=== PATIENT | female | born 1945 | race Caucasian/White ===

== ENCOUNTER 2016-04-25 12:13 | Inpatient (IN) | payer MEDICARE, MEDICAID ==
[~2016-04-25] VITALS: Ht 157.5 cm; Wt 147.7 kg
[2016-04-25] MEDS ORDERED: ACETAMINOPHEN 500 MG TAB PO STA (12:15)
--- NOTE | 2016-04-25 12:36 | RADRPT ---
PROCEDURE: XR Chest. CLINICAL INDICATION: Sepsis. TECHNIQUE: Single frontal view of the chest was obtained COMPARISON: Chest x-ray 04/09/2014 12:41 p.m. FINDINGS: Heart is enlarged. The pulmonary vasculature is increased. The soft tissues are generous. There a re osteophytes in the thoracic spine. There are vascular calcifications in the aortic arch. Costop hrenic angle on the right is clear. The left costophrenic angle is poorly visualized due to underpe netration of the radiograph. IMPRESSION: 1. Cardiomegaly with atherosclerotic vascular disease involving the aortic arch. 2. Obesity with underpenetration of the radiograph. 3. Spondylosis of the thoracic spine. 4. The pulmonary vasculature is equilibrated. Mild pulmonary venous obstruction is not excluded. RPTAT:AAJJ Physician Valentina Date Time Electronically viewed and signed by Catrachito Marshall Physician on 04/25/2016 12:36 LUCY/
[2016-04-25] MEDS ORDERED: ESOM40CA PO (12:49)
[2016-04-25] MEDS ORDERED: FURO40TA4 PO (12:50)
[2016-04-25] MEDS ORDERED: FLUO40CA10 PO (12:50)
[2016-04-25] MEDS ORDERED: POTA20TA96 PO (12:51)
[2016-04-25] MEDS ORDERED: HYDR-902 PO (12:52)
[2016-04-25] MEDS ORDERED: GABA300C16 PO (12:52)
[2016-04-25] MEDS ORDERED: BACL10TA PO (12:53)
[2016-04-25] MEDS ORDERED: WARF1TAB47 PO (12:53)
[2016-04-25] MEDS ORDERED: MORP15TA92 PO (12:54)
[2016-04-25] MEDS ORDERED: SOD CHLORIDE 0.9% 1,000 ML IV STA ×2 (13:10→14:14)
[2016-04-25 13:24] LABS: BASOPHILS % 0.1 % (0.0-2.0); EOSINOPHILS % 0.1 % (0.0-7.0); HEMATOCRIT 30.9 % (37.0-47.0); HEMOGLOBIN 10.3 g/dl (12.0-16.0); LYMPHOCYTES # 1.2 10^3/ul (0.8-2.9); LYMPHOCYTES % 9.4 % (15.0-51.0); MEAN CORPUSCULAR HEMOGLOBIN 25.7 pg (29.0-33.0); MEAN CORPUSCULAR HGB CONC 33.4 g/dl (32.0-37.0); MEAN PLATELET VOLUME 6.8 fl (7.4-10.4); MONOCYTE # 0.5 10^3/ul (0.3-0.9); MONOCYTES % 4.3 % (0.0-11.0); NEUTROPHIL # 10.7 10^3/ul (1.6-7.5); NEUTROPHILS % 86.1 % (39.0-77.0); PLATELET COUNT 249 10^3/UL (140-440); RED BLOOD COUNT 4.01 10^6/ul (4.20-5.40); RED CELL DISTRIBUTION WIDTH 14.2 % (11.5-14.5); UNCORRECTED WBC 12.5 10^3/ul (4.8-10.8); WHITE BLOOD COUNT 12.5 10^3/ul (4.8-10.8)
[2016-04-25 13:27] LABS: CONDITION 1; LH ANALYZER COMMENTS 1
[2016-04-25 13:30] LABS: ALBUMIN 3.7 g/dl (3.3-4.9)
[2016-04-25 13:31] LABS: CHLORIDE 99 mmol/L (97-110); INR 1.16; POTASSIUM 4.8 mmol/L (3.5-5.1); PROTIME 14.8 Sec (12.2-14.2); PT RATIO 1.2; SODIUM 140 mmol/L (135-144)
[2016-04-25 13:32] LABS: PARTIAL THROMBOPLASTIN TIME 28.5 Sec (25.0-35.0)
[2016-04-25 13:33] LABS: ALBUMIN/GLOBULIN RATIO 0.84; ALKALINE PHOSPHATASE 80 IU/L (42-121); ANION GAP 21 (8-16); ASPARTATE AMINO TRANSFERASE 27 IU/L (15-46); BILIRUBIN,INDIRECT 0.7 mg/dl (0-1.1); BILIRUBIN,TOTAL 0.7 mg/dl (0.2-1.3); CARBON DIOXIDE 25 mmol/L (21-31); CREATININE 0.78 mg/dl (0.44-1.00); TOTAL PROTEIN 8.1 g/dl (6.1-8.1)
--- NOTE | 2016-04-25 13:33 | RADRPT ---
PROCEDURE: CT Brain without contrast. CLINICAL INDICATION: Altered mental status TECHNIQUE: A CT of the brain was performed on a multidetector CT scanner utilizing axial sections from the skull base through the vertex without contrast. Images were reviewed on a high-resolution [employer] workstation. Exam CTDI = 44.81 mGy and the DLP = 720.23 mGy-cm. COMPARISON: CT scan brain dated 03/20/2014 FINDINGS: Moderate diffuse cerebral and cerebellar atrophy is present. There is proportionate dilatation of t he ventricular system and sulci in a symmetric fashion. There is prominence of the extraaxial spaces secondary to atrophy. There is no evidence of intracranial hemorrhage, mass effect or midline shift . No abnormal intra-axial or extra-axial fluid collections are seen. The density of the brain is n ormal and the norris/white matter differentiation is well preserved. Mild patchy diffuse deep white m atter microangiopathic ischemic change is seen. Appearances are stable when compared to the prior s tudy. The osseous structures and visualized paranasal sinuses are unremarkable. Vascular calcificat ions are identified. IMPRESSION: 1. Moderate diffuse atrophy. 2. Mild microangiopathic ischemic change. 3. Vascular calcifications. 4. Stable appearances over time. RPTAT: HMJB .Armond Kwok MD, Date Time Electronically viewed and signed by .Armond Kwok MD, on 04/25/2016 13:32 .B/
[2016-04-25 13:34] LABS: ALANINE AMINOTRANSFERASE 25 IU/L (13-69); BLOOD UREA NITROGEN 20 mg/dl (7-20); CALCIUM 9.1 mg/dl (8.4-10.2); GLUCOSE 144 mg/dl (70-220)
[2016-04-25 13:46] LABS: TROPONIN-I < 0.012 ng/ml (0.00-0.12)
[2016-04-25] MEDS ORDERED: CEFTRIAXONE 1 GM/50 ML (PMX) 50 ML IVPB ONE (14:00)
[2016-04-25 14:26] LABS: ADD UMIC YES; URINE BILIRUBIN (Dip) NEGATIVE (NEGATIVE); URINE BLOOD (Dip) 2+ (NEGATIVE); URINE COLOR LT. YELLOW (YELLOW); URINE GLUCOSE (Dip) NEGATIVE (NEGATIVE); URINE KETONES (Dip) NEGATIVE (NEGATIVE); URINE LEUKOCYTE ESTERASE (Dip) 2+ (NEGATIVE); URINE NITRITE (Dip) POSITIVE (NEGATIVE); URINE TOTAL PROTEIN (Dip) 2+ (NEGATIVE); URINE UROBILINOGEN (Dip) 0.2 E.U./dL (0.1-1.0)
[2016-04-25] MEDS ORDERED: SOD CHLORIDE 0.9% 1,000 ML IV SCH (14:36)
[2016-04-25 14:39] LABS: BACTERIA,URINE MODERATE
--- NOTE | 2016-04-25 14:41 | ERA ---
ER Documentation Chief Complaint Date/Time DATE: 04/25/16 TIME: 14:37 Chief Complaint ALOC UNKNOWN HOW LONG HPI This is a 70-year-old female presents to the emergency room for evaluation of altered mental status and weakness for 1 days duration. This patient states that she does not know why she is in the emergency room, she has no complaints at this time, not complaining of chest pain or shortness of breath. No headaches or blurred vision. According to family members this patient was more altered than normal ROS All systems reviewed and are negative except as per history of present illness. Medications Home Meds Reported Medications Morphine Sulfate* (Ms Contin*) 15 Mg Tablet.sa, 30 MG PO Q8 Y for PAIN, TAB.SA 04/25/16 Warfarin Sodium* (Coumadin*) 1 Mg Tablet, 1 MG PO DAILY, TAB 04/25/16 Baclofen* (Baclofen*) 10 Mg Tablet, 10 MG PO DAILY, TAB 04/25/16 Gabapentin* (Gabapentin*) 300 Mg Capsule, 300 MG PO QID, #60 CAP 04/25/16 Hydrocodone/Acetaminophen ([place] 10-325 Tablet) 1 Each Tablet, 1 EACH PO Q6 Y for PAIN, TAB 04/25/16 Potassium Chloride* (Potassium Chloride*) 20 Meq Tablet.er, 20 MEQ PO DAILY, TAB.SA 04/25/16 Fluoxetine Hcl* (Prozac*) 40 Mg Capsule, 40 MG PO DAILY, CAP 04/25/16 Furosemide* (Furosemide*) 40 Mg Tablet, 40 MG PO DAILY, TAB 04/25/16 Esomeprazole Mag Trihydrate (Nexium) 40 Mg Capsule.dr, 40 MG PO DAILY, #30 CAP 04/25/16 Allergies Allergies: Coded Allergies: No Known Allergy (Unverified , 04/25/16) PMhx/Soc Anesthesia Reaction: No Hx Neurological Disorder: Yes (Recent hx [place]) Hx Respiratory Disorders: No Hx Cardiac Disorders: No Hx Psychiatric Problems: No Hx Miscellaneous Medical Probl: No Hx Alcohol Use: Yes (occasional glass of wine with dinner) Hx Substance Use: No Hx Tobacco Use: Yes (Hx of 2 pack a day for 36 years) Smoking Status: Current every day smoker Physical Exam Vitals Vital Signs Date Time Temp Pulse Resp B/P Pulse Ox O2 Delivery O2 Flow Rate FiO2 04/25/16 13:00 Nasal Cannula 2 04/25/16 12:17 103.1 121 20 184/88 89 Physical Exam INITIAL VITAL SIGNS: Reviewed by me GENERAL: The patient is well developed and appropriate for usual state of health in no apparent distress, warm to touch HEENT: Dry mucous members, pupils equal, round, and reactive to light. EOMI. There is no scleral icterus. NECK: C-spine is soft and supple, there is no meningismus. There is no cervical lymphadenopathy. LUNGS: Clear to auscultation bilaterally. There are no rales, wheezes or rhonchi. HEART: Tachycardic, no murmurs, clicks, rubs or gallops. ABDOMEN: Obese limiting exam, soft, non-tender, non-distended. There are bowel sounds in all four quadrants. No rebound or guarding. EXTREMITIES: There is no peripheral cyanosis or edema. No focal swelling or erythema. NEUROLOGICAL: The patient moves all four extremities with 5/5 strength. Cranial nerves II - XII are intact. Normal gait. Alert and oriented SKIN: There is no apparent rash or petechiae. HEME/LYMPHATIC: There is no evidence of excessive bruising or lymphedema. PSYCHIATRIC: The patient does not appear anxious or depressed. Result Diagram: 04/25/16 1235 04/25/16 1235 Results 24 hrs Laboratory Tests Test 04/25/16 12:30 04/25/16 12:35 04/25/16 13:57 Lactic Acid Level 2.4mmol/L Activated Partial Thromboplast Time 28.5Sec Alanine Aminotransferase (ALT/SGPT) 25IU/L Albumin 3.7g/dl Albumin/Globulin Ratio 0.84 Alkaline Phosphatase 80IU/L Anion Gap 21 Aspartate Amino Transf (AST/SGOT) 27IU/L Basophils # 0.010^3/ul Basophils % 0.1% Blood Morphology Comment Blood Urea Nitrogen 20mg/dl Calcium Level 9.1mg/dl Carbon Dioxide Level 25mmol/L Chloride Level 99mmol/L Creatinine 0.78mg/dl Direct Bilirubin 0.00mg/dl Eosinophils # 0.010^3/ul Eosinophils % 0.1% Globulin 4.40g/dl Glucose Level 144mg/dl Hematocrit 30.9% Hemoglobin 10.3g/dl INR International Normalized Ratio 1.16 Indirect Bilirubin 0.7mg/dl Lymphocytes # 1.210^3/ul Lymphocytes % 9.4% Mean Corpuscular Hemoglobin 25.7pg Mean Corpuscular Hemoglobin Concent 33.4g/dl Mean Corpuscular Volume 77.0fl Mean Platelet Volume 6.8fl Monocytes # 0.510^3/ul Monocytes % 4.3% Neutrophils # 10.710^3/ul Neutrophils % 86.1% Nucleated Red Blood Cells # 0.010^3/ul Nucleated Red Blood Cells % 0.0/100WBC Platelet Count 92507^3/UL Potassium Level 4.8mmol/L Prothrombin Time 14.8Sec Prothrombin Time Ratio 1.2 Red Blood Count 4.0110^6/ul Red Cell Distribution Width 14.2% Sodium Level 140mmol/L Total Bilirubin 0.7mg/dl Total Protein 8.1g/dl Troponin I < 0.012ng/ml White Blood Count 12.510^3/ul Urine Bilirubin NEGATIVE Urine Clarity TURBID Urine Color LT. YELLOW Urine Glucose NEGATIVE% Urine Hemoglobin 2+ Urine Ketones NEGATIVE Urine Leukocyte Esterase 2+ Urine Microscopic RBC Pending Urine Microscopic WBC Pending Urine Nitrite POSITIVE Urine Specific [place] 1.025 Urine Total Protein 2+ Urine Urobilinogen 0.2 E.U./dL Urine pH 6.0 Current Medications Medications (Trade) Dose Ordered Sig/Macy Route PRN Reason Start Time Stop Time Status Last Admin Dose Admin Acetaminophen 500 mg 500 mg ONCE STAT PO 04/25/16 12:15 04/25/16 12:17 DC 04/25/16 13:07 Sodium Chloride 1,000 ml @ 1,000 mls/hr Q1H STAT IV 04/25/16 13:10 04/25/16 14:09 DC Ceftriaxone Sodium 50 ml @ 100 mls/hr ONCE ONCE IVPB 04/25/16 14:00 04/25/16 14:29 DC Sodium Chloride (NS) 1,000 ml @ 1,000 mls/hr Q1H STAT IV 04/25/16 14:14 04/25/16 15:13 Procedures/MDM EKG: Rate/Rhythm: Sinus tachycardia QRS, ST, T-waves: [No changes consistent w/ acute ischemia] Impression: [No evidence of ischemia or arrhythmia] Chest X-ray 1V Interpreted by me: Soft Tissue: No acute abnormalities Bones: No acute abnormalities Mediastinum/Cardiac Silhouette/Lungs: [No acute abnormalities] CT head without: 1. Moderate diffuse atrophy. 2. Mild microangiopathic ischemic change. 3. Vascular calcifications. 4. Stable appearances over time. This is a 70-year-old female presents to the emergency room for evaluation of altered mental status. When I evaluated her she was not altered. She was alert and oriented to person place and time. The patient was febrile tachycardic however. A septic workup was started and the patient was found to have a urinary tract infection with leukocytosis. Given her fever and tachycardia she does meet sepsis criteria. She was not given 30 cc/kg of IV normal saline due to the fact that she is at significant risk for fluid overload given her age and vascular congestion on chest x-ray. The patient was given Rocephin after blood and urine cultures were obtained. Her initial lactic acid was 2.4. Second lactic acid is pending at this time. Her mean arterial pressures greater than 65 with no need for vasopressors at this time. CT of the brain is normal and the patient has no signs of altered mental status. This patient is stable for [facility] And will be admitted to her panel physician, Dr. Fermin Critical Care: Excluding all billable procedures Time: 38 minutes Treatments/Evaluations: Close monitoring and treatment of unstable vital signs, cardiorespiratory, and neurologic status, while maintaining tight balance of fluid, respiratory, and cardiac interventions. Departure Diagnosis: Primary Impression: Sepsis Additional Impressions: Acute cystitis Microcytic anemia Generalized weakness Condition: MICHAEL Bacon DO Apr 25, 2016 14:41
[2016-04-25] MEDS ORDERED: ONDANSETRON 4 MG INJ IV PRN ×2 (15:00→19:00)
[2016-04-25] MEDS ORDERED: ACETAMINOPHEN 325 MG TAB PO PRN ×2 (15:00→19:00)
[2016-04-25 16:30] VITALS: TEMP 99.6
[2016-04-25 18:46] VITALS: BP 133/91; PULSE 110; RESP 18
[2016-04-25 18:47] VITALS: Ht 157.5 cm; Wt 147.7 kg
[2016-04-25] MEDS ORDERED: PIPER-TAZO 3.375 GM IV (PMX) 100 ML IVPB SCH (19:00)
[2016-04-25] MEDS ORDERED: NACL 0.9% 3 ML SYG IV SCH (19:00)
[2016-04-25] MEDS ORDERED: morphine (ER) 15 MG TAB PO PRN (19:00)
[2016-04-25] MEDS ORDERED: ZOLPIDEM 5 MG TAB PO PRN (19:00)
[2016-04-25] MEDS ORDERED: DOCUSATE SODIUM 100 MG CAP PO PRN (19:00)
[2016-04-25] MEDS ORDERED: morphine 2 MG INJ IV PRN (19:00)
[2016-04-25] MEDS: SOD CHLORIDE 0.45% 1,000 ML IV SCH (20:24)
[2016-04-25 21:06] VITALS: BP 171/73; RESP 16
[2016-04-25] MEDS: GABAPENTIN 300 MG CAP PO SCH (22:18)
[2016-04-25] MEDS: morphine 2 MG INJ IV PRN (22:19)
[2016-04-26] MEDS: PIPER-TAZO 3.375 GM IV (PMX) 100 ML IVPB SCH ×3 (01:00→12:19)
[2016-04-26] MEDS: HYDROCODONE/APAP (5/325) TAB PO PRN ×2 (01:03→08:23)
[2016-04-26] MEDS: SOD CHLORIDE 0.45% 1,000 ML IV SCH ×2 (04:43→08:14)
[2016-04-26] MEDS: morphine 2 MG INJ IV PRN ×2 (04:44→12:22)
[2016-04-26] MEDS ORDERED: PANTOPRAZOLE (EC) 40 MG TAB PO SCH (06:00)
--- NOTE | 2016-04-26 06:03 | HP ---
DATE OF ADMISSION: 04/25/2016 CHIEF COMPLAINT: Generalized weakness, fatigue. HISTORY OF PRESENT ILLNESS: The patient is a 70-year-old female with a history of hypothyroidism, m orbid obesity, neuropathy, diabetes, deconditioning. The patient was hospitalized in 2014 for debil ity, GBS with notable impoverishment in self-care and mobility. The patient now presents with gener alized weakness. In the ED, she was noted to have a UA that suggested UTI. Her urine was very clou dy and she has no other complaints at this time. PAST MEDICAL HISTORY: As per HPI. HOME MEDICATIONS: 1. Baclofen. 2. [place]. 3. Nexium. 4. Prozac. 5. Furosemide. 6. Gabapentin. 7. MS Contin. 8. Potassium. 9. Coumadin. ALLERGIES: NO KNOWN DRUG ALLERGIES. FAMILY HISTORY: Noncontributory. SOCIAL HISTORY: Denies any tobacco, alcohol, or drug abuse. REVIEW OF SYSTEMS: A 10-point review of systems negative except that in the HPI. PHYSICAL EXAMINATION: VITAL SIGNS: Temperature is 99.7, pulse 110, respiratory rate 18, BP is 133/91, saturation 97% on 2 liters. GENERAL: In no acute distress, alert and oriented. HEENT: Normocephalic, atraumatic. CHEST: Clear to auscultation. CARDIOVASCULAR: Regular rate and rhythm. ABDOMEN: Obese, nondistended, nontender, soft. EXTREMITIES: No clubbing, cyanosis, or edema. LABORATORIES: White count 12.5, hemoglobin 10.3, platelets are 49. Chemistry within normal limits except for lactic acid slightly elevated at 2.4, subsequent lactic acids are normalized. INR is 1. 16. UA positive nitrites, 2+ leukocyte esterase, greater than 200 WBCs. DIAGNOSTICS: Chest x-ray shows cardiomegaly with atherosclerotic vascular disease involving the aor tic arch, obesity, spondylosis of the thoracic spine and pulmonary vasculature is collaborated. Bra in CT shows moderate diffuse atrophy, mild microangiopathic ischemic changes, vascular calcification s, stable appearance over time. ASSESSMENT AND PLAN: 1. Sepsis secondary to urinary tract infection. The patient does meet sepsis criteria with a fever , T-max of 103.1 on arrival, leukocytosis with a white count of 12.5, elevated lactic acid of 2.4. Source is once again is urinary tract infection. We treated with Zosyn IV as the patient does have a history of fairly resistant coagulase negative staph in the past. Will obtain a urine culture. I f felt to be needed, will get an infectious disease consultation in the a.m. We will also treat wit h IV fluids. 2. Morbid obesity. Lifestyle changes will be advised during this hospitalization. 3. History of debility secondary to obesity. 4. History of GBS. Periods of this was suspected during the last hospitalization in 2014. 5. Gastroesophageal reflux disease. Continue Nexium. 6. Depression. Continue Prozac. 7. Neuropathy. Continue gabapentin. 8. Prophylaxis. Lovenox. Dictated By: DIMITRY CARROLL MD BS/NTS Conf#: [id number] DID#: [id number]
[2016-04-26 06:11] LABS: POTASSIUM 4.2 mmol/L (3.5-5.1)
[2016-04-26 06:12] LABS: INR 1.18; PROTIME 15.1 Sec (12.2-14.2); PT RATIO 1.2
[2016-04-26 06:14] LABS: CREATININE 0.67 mg/dl (0.44-1.00)
[2016-04-26 06:15] LABS: CALCIUM 8.6 mg/dl (8.4-10.2); CHOL/HDL RATIO 4.3 RATIO; PHOSPHORUS 3.1 mg/dl (2.5-4.9)
[2016-04-26 06:45] LABS: BASOPHILS % 0.3 % (0.0-2.0); EOSINOPHILS % 0.1 % (0.0-7.0); HEMATOCRIT 28.7 % (37.0-47.0); HEMOGLOBIN 9.4 g/dl (12.0-16.0); LYMPHOCYTES # 1.4 10^3/ul (0.8-2.9); LYMPHOCYTES % 16.3 % (15.0-51.0); MEAN CORPUSCULAR HEMOGLOBIN 25.4 pg (29.0-33.0); MEAN CORPUSCULAR HGB CONC 32.8 g/dl (32.0-37.0); MEAN CORPUSCULAR VOLUME 77.3 fl (82.0-101.0); MEAN PLATELET VOLUME 7.3 fl (7.4-10.4); MONOCYTE # 0.5 10^3/ul (0.3-0.9); MONOCYTES % 5.2 % (0.0-11.0); NEUTROPHIL # 6.8 10^3/ul (1.6-7.5); NEUTROPHILS % 78.1 % (39.0-77.0); PLATELET COUNT 204 10^3/UL (140-440); RED BLOOD COUNT 3.71 10^6/ul (4.20-5.40); RED CELL DISTRIBUTION WIDTH 14.1 % (11.5-14.5); UNCORRECTED WBC 8.8 10^3/ul (4.8-10.8); WHITE BLOOD COUNT 8.8 10^3/ul (4.8-10.8)
[2016-04-26 07:10] LABS: CONDITION 1; LH ANALYZER COMMENTS 1
[2016-04-26 07:35] VITALS: BP 137/70; RESP 20
[2016-04-26] MEDS: GABAPENTIN 300 MG CAP PO SCH ×2 (08:14→12:20)
[2016-04-26] MEDS ORDERED: FUROSEMIDE 40 MG TAB PO SCH (09:00)
[2016-04-26] MEDS ORDERED: ENOXAPARIN 40 MG/0.4 ML SYG SC SCH (09:00)
[2016-04-26] MEDS ORDERED: WARFARIN 1 MG TAB PO SCH (09:00)
[2016-04-26] MEDS ORDERED: FLUOXETINE 20 MG CAP PO SCH (09:00)
[2016-04-26] MEDS ORDERED: POTASSIUM CHLORIDE (SR) 20 MEQ TAB PO SCH (09:00)
[2016-04-26] MEDS ORDERED: CIPR500T4 PO (09:45)
[2016-04-26] MEDS ORDERED: MACBID PO (09:45)
--- NOTE | 2016-04-26 09:46 | PDOCDIS ---
Discharge Instructions CONDITION Patient Condition: Good HOME CARE INSTRUCTIONS: Special Diet: Low Calorie ACTIVITY: Activity Restrictions: No Restrictions FOLLOW UP/APPOINTMENTS Appointments F/U WITH YOUR PCP IN 1-2 WEEKS DIMITRY CARROLL Apr 26, 2016 09:46
[2016-04-26] MEDS ORDERED: NITROFURANTOIN (SR) 100 MG CAP PO SCH (10:30)
[2016-04-26 14:29] VITALS: BP 145/71; PULSE 108; RESP 18
--- NOTE | 2016-04-26 19:26 | DS ---
DATE OF ADMISSION: 04/25/2016 DATE OF DISCHARGE: 04/26/2016 DISCHARGE DIAGNOSES: 1. Sepsis secondary to urinary tract infection, improved with p.o. antibiotics. 2. Morbid obesity with debility. Continue home PT. 3. Gastroesophageal reflux disease. Continue PPI. 4. Depression. Continue Prozac. 5. Neuropathy. Continue gabapentin. HOSPITAL COURSE: The patient is a 70-year-old female with a history of hyperthyroidism, morbid obes ity, neuropathy, diabetes and deconditioning. The patient was hospitalized for debility. At that time it was thought that she may have GBS. The patient states that the workup showed that she does not have GBS, actually. She does have home care and had been undergoing physical therapy at [facility]. She presented with generalized weakness, found to have sepsis secondary to urinary tract infect ion. The patient was given IV antibiotics and her sepsis did resolve. Patient was adamant about go ing home, so the patient can continue the course of antibiotics at home. On day of discharge, the p atient's vitals, labs, physical exam were stable. She had no acute complaints and questions answere d. CONDITION ON DISCHARGE: Stable. DISPOSITION: To home. MEDICATIONS: The patient was given a prescription for Cipro and Macrobid. Of note, the patient's p reliminary urine culture showed gram-negative rods. The patient is to continue taking at-home medic ations. FOLLOWUP: The patient is to follow up with PCP in 1 to 2 weeks. Greater than 30 minutes were spent coordinating discharge of patient. Dictated By: DIMITRY RIVERA/NTS Conf#: [id number] DID#: [id number]
== END 2016-04-26 14:37 | disposition home or self-care (01) | DRG 872 ==
LOC: E/R 12:13 → MS2 14:37
PROVIDERS: ADMIT Internal Medicine; ATTEND Internal Medicine
DX: A41.9 Sepsis, unspecified organism (principal); N39.0 Urinary tract infection, site not specified; G62.9 Polyneuropathy, unspecified; Z68.43 Body mass index [BMI] 50.0-59.9, adult; K21.9 Gastro-esophageal reflux disease without esophagitis; F32.9 Major depressive disorder, single episode, unspecified; E66.01 Morbid (severe) obesity due to excess calories; Z79.02 Long term (current) use of antithrombotics/antiplatelets
CPT/HCPCS: 36415; 70450; 71010; 80048; 80053; 80061; 81001; 81003; 83036; 83605; 83735; 84100; 84484; 85025; 85610; 85730; 87040; 87086; 87400; 93005; 96374; J0696; J1650; J2270; J2405; J2543; J7030

== ENCOUNTER 2016-07-29 11:02 | Inpatient (IN) | payer MEDICARE, OTHER ==
[~2016-07-29] VITALS: Ht 162.6 cm; Wt 143.0 kg
[~2016-07-29 11:02] MED LIST: BACL10TA PO; CIPR500T4 PO; ESOM40CA PO; FLUO40CA10 PO; FURO40TA4 PO; GABA300C16 PO; HYDR-902 PO; MACBID PO; MORP15TA92 PO; POTA20TA96 PO; WARF1TAB47 PO
[2016-07-29] MEDS ORDERED: CEFEPIME 2GM/50 ML (PMX) 50 ML IVPB STA (11:07)
[2016-07-29] MEDS ORDERED: SODIUM CHLORIDE 0.9% 1L BAG IV* STA (11:13)
[2016-07-29] MEDS ORDERED: VANCOMYCIN 1 GM (PMX) 250 ML IVPB ONE (11:30)
[2016-07-29] MEDS ORDERED: ACETAMINOPHEN 325 MG TAB PO ONE (11:30)
[2016-07-29 11:31] LABS: ADD SCAN DIFF NO
[2016-07-29 11:34] LABS: BASOPHILS % 0.2 % (0.0-2.0); EOSINOPHILS # 0.1 10^3/ul (0.0-0.5); EOSINOPHILS % 0.4 % (0.0-7.0); HEMATOCRIT 25.6 % (37.0-47.0); HEMOGLOBIN 7.6 g/dl (12.0-16.0); LYMPHOCYTES # 1.6 10^3/ul (0.8-2.9); LYMPHOCYTES % 13.4 % (15.0-51.0); MEAN CORPUSCULAR HEMOGLOBIN 22.6 pg (29.0-33.0); MEAN CORPUSCULAR HGB CONC 29.7 g/dl (32.0-37.0); MEAN CORPUSCULAR VOLUME 76.2 fl (82.0-101.0); MEAN PLATELET VOLUME 8.8 fl (7.4-10.4); MONOCYTE # 0.5 10^3/ul (0.3-0.9); MONOCYTES % 3.8 % (0.0-11.0); NEUTROPHIL # 9.8 10^3/ul (1.6-7.5); NEUTROPHILS % 81.6 % (39.0-77.0); PLATELET COUNT 352 10^3/UL (140-415); RED BLOOD COUNT 3.36 10^6/ul (4.20-5.40); RED CELL DISTRIBUTION WIDTH 16.7 % (11.5-14.5)
[2016-07-29 11:47] LABS: ALBUMIN 3.1 g/dl (3.3-4.9); CHLORIDE 95 mmol/L (97-110); INR 1.11; PROTIME 14.3 Sec (12.2-14.2); PT RATIO 1.1
[2016-07-29 11:48] LABS: PARTIAL THROMBOPLASTIN TIME 29.5 Sec (25.0-35.0); POTASSIUM 4.5 mmol/L (3.5-5.1); SODIUM 136 mmol/L (135-144)
[2016-07-29 11:50] LABS: ALBUMIN/GLOBULIN RATIO 0.59; ALKALINE PHOSPHATASE 77 IU/L (42-121); ANION GAP 17 (8-16); ASPARTATE AMINO TRANSFERASE 22 IU/L (15-46); BILIRUBIN,INDIRECT 0.1 mg/dl (0-1.1); BILIRUBIN,TOTAL 0.1 mg/dl (0.2-1.3); BLOOD UREA NITROGEN 23 mg/dl (7-20); CARBON DIOXIDE 29 mmol/L (21-31); TOTAL PROTEIN 8.3 g/dl (6.1-8.1)
[2016-07-29 11:51] LABS: ALANINE AMINOTRANSFERASE 30 IU/L (13-69); CALCIUM 8.5 mg/dl (8.4-10.2); GLUCOSE 155 mg/dl (70-220)
[2016-07-29] MEDS ORDERED: SOD CHLORIDE 0.9% 250 ML IV ONE (11:55)
[2016-07-29 12:04] LABS: TROPONIN-I < 0.012 ng/ml (0.00-0.12)
--- NOTE | 2016-07-29 12:05 | RADRPT ---
PROCEDURE: XR Chest. CLINICAL INDICATION: Sepsis TECHNIQUE: Anterior chest x-ray. COMPARISON: 04/25/2016 FINDINGS: The lungs are clear. No pleural effusion identified. There is no evidence of pneumothorax. Cardiomegaly is unchanged. Atherosclerotic calcification of the aorta is noted. The cardiomediastinal silhouette is otherwise unremarkable. The soft tissues are normal. Osseous structures are unremarkable. IMPRESSION: 1. No acute disease is seen in the chest. 2. No significant change from previous exam. 3. Cardiomegaly. 4. Atherosclerotic calcification of the aorta. 5. Pulmonary vascular congestion, unchanged. RPTAT: QQ .Cornell Steel MD, MD Date Time Electronically viewed and signed by .Cornell Steel MD, on 07/29/2016 12:05 .M/
--- NOTE | 2016-07-29 12:16 | ERA ---
ER Documentation Chief Complaint Date/Time DATE: 07/29/16 TIME: 12:13 Chief Complaint BIB RA FOR EVAL OF SOB SINCE THIS AM. HPI Patient is a 70-year-old female with obesity who presents with shortness of breath. She was brought in by ambulance. She says that she has shaking hands. She says that she is falling asleep. Her nurse has called [phone] times today in the first 2 times she refused to go to the emergency department. She denies fevers and denies cough. She has a large left-sided buttock wound which is being dressed but has a significant amount of drainage and foul smell. ROS All systems reviewed and are negative except as per history of present illness. Medications Home Meds Active Scripts Ciprofloxacin Hcl* (Ciprofloxacin Hcl*) 500 Mg Tablet, 500 MG PO BID for 5 Days , TAB Prov:DIMITRY FERMIN 04/26/16 Nitrofurantoin Monohyd Macrocr (Macrobid) 100 Mg Capsr, 100 MG PO BID for 5 Days , CAP Prov:DIMITRY FERMIN 04/26/16 Reported Medications Morphine Sulfate* (Ms Contin*) 15 Mg Tablet.sa, 30 MG PO Q8 Y for PAIN, TAB.SA 04/25/16 Warfarin Sodium* (Coumadin*) 1 Mg Tablet, 1 MG PO DAILY, TAB 04/25/16 Baclofen* (Baclofen*) 10 Mg Tablet, 10 MG PO DAILY, TAB 04/25/16 Gabapentin* (Gabapentin*) 300 Mg Capsule, 300 MG PO QID, #60 CAP 04/25/16 Hydrocodone/Acetaminophen ([place] 10-325 Tablet) 1 Each Tablet, 1 EACH PO Q6 Y for PAIN, TAB 04/25/16 Potassium Chloride* (Potassium Chloride*) 20 Meq Tablet.er, 20 MEQ PO DAILY, TAB.SA 04/25/16 Fluoxetine Hcl* (Prozac*) 40 Mg Capsule, 40 MG PO DAILY, CAP 04/25/16 Furosemide* (Furosemide*) 40 Mg Tablet, 40 MG PO DAILY, TAB 04/25/16 Esomeprazole Mag Trihydrate (Nexium) 40 Mg Capsule.dr, 40 MG PO DAILY, #30 CAP 04/25/16 Allergies Allergies: Coded Allergies: No Known Allergy (Unverified , 04/25/16) PMhx/Soc History of Surgery: Yes Anesthesia Reaction: No Hx Neurological Disorder: Yes (Neuropathy, Guillain [place]) Hx Respiratory Disorders: No Hx Cardiac Disorders: No Hx Psychiatric Problems: No (denies) Hx Miscellaneous Medical Probl: Yes (Morbid Obesity ) Hx Alcohol Use: No Hx Substance Use: No Hx Tobacco Use: No Smoking Status: Never smoker FmHx Family History: No diabetes Physical Exam Vitals Vital Signs Date Time Temp Pulse Resp B/P Pulse Ox O2 Delivery O2 Flow Rate FiO2 07/29/16 12:04 77 22 127/83 94 Nasal Cannula 4.0 07/29/16 11:32 Nasal Cannula 4 07/29/16 11:05 100.9 118 Physical Exam Const: Mild distress Head: Atraumatic Eyes: Normal Conjunctiva ENT: Normal External Ears, Nose and Mouth. Neck: Full range of motion..~ No meningismus. Resp: Clear to auscultation bilaterally Cardio: Regular rate and rhythm, no murmurs Abd: Soft, non tender, non distended. Normal bowel sounds Skin: Pale skin, large wound to the left buttock with drainage and surrounding erythema Back: No midline or flank tenderness Ext: No cyanosis, or edema Neur: Awake but confused Result Diagram: 07/29/16 1119 07/29/16 1119 Results 24 hrs Laboratory Tests Test 07/29/16 11:19 White Blood Count 12.010^3/ul Red Blood Count 3.3610^6/ul Hemoglobin 7.6g/dl Hematocrit 25.6% Mean Corpuscular Volume 76.2fl Mean Corpuscular Hemoglobin 22.6pg Mean Corpuscular Hemoglobin Concent 29.7g/dl Red Cell Distribution Width 16.7% Platelet Count 05056^3/UL Mean Platelet Volume 8.8fl Neutrophils % 81.6% Lymphocytes % 13.4% Monocytes % 3.8% Eosinophils % 0.4% Basophils % 0.2% Nucleated Red Blood Cells % 0.0/100WBC Neutrophils # 9.810^3/ul Lymphocytes # 1.610^3/ul Monocytes # 0.510^3/ul Eosinophils # 0.110^3/ul Basophils # 0.010^3/ul Nucleated Red Blood Cells # 0.010^3/ul Prothrombin Time 14.3Sec Prothrombin Time Ratio 1.1 INR International Normalized Ratio 1.11 Activated Partial Thromboplast Time 29.5Sec Sodium Level 136mmol/L Potassium Level 4.5mmol/L Chloride Level 95mmol/L Carbon Dioxide Level 29mmol/L Anion Gap 17 Blood Urea Nitrogen 23mg/dl Creatinine 1.00mg/dl Glucose Level 155mg/dl Lactic Acid Level 1.3mmol/L Calcium Level 8.5mg/dl Total Bilirubin 0.1mg/dl Direct Bilirubin 0.00mg/dl Indirect Bilirubin 0.1mg/dl Aspartate Amino Transf (AST/SGOT) 22IU/L Alanine Aminotransferase (ALT/SGPT) 30IU/L Alkaline Phosphatase 77IU/L Troponin I < 0.012ng/ml Total Protein 8.3g/dl Albumin 3.1g/dl Globulin 5.20g/dl Albumin/Globulin Ratio 0.59 Current Medications Medications (Trade) Dose Ordered Sig/Macy Route PRN Reason Start Time Stop Time Status Last Admin Dose Admin Cefepime HCl 50 ml @ 100 mls/hr ONCE STAT IVPB 07/29/16 11:07 07/29/16 11:36 DC 07/29/16 11:27 Vancomycin HCl (Vancocin) 250 ml @ 125 mls/hr ONCE ONCE IVPB 07/29/16 11:30 07/29/16 13:29 Acetaminophen (Tylenol Tab) 650 mg ONCE ONCE PO 07/29/16 11:30 07/29/16 11:31 DC 07/29/16 11:27 Sodium Chloride 5610 ml 5,610 ml BOLUS OVER 2 HOURS STAT IV* 07/29/16 11:13 07/29/16 11:14 DC 07/29/16 11:27 Sodium Chloride (NS) 250 ml @ 0 mls/hr Q0M ONCE IV 07/29/16 11:55 07/29/16 11:57 DC Ondansetron HCl (Zofran Inj) 4 mg BRIDGE ORDER PRN IV NAUSEA AND/OR VOMITING 07/29/16 12:30 07/30/16 12:29 Acetaminophen (Tylenol Tab) 650 mg ER BRIDGE PRN PO MILD PAIN/FEVER 07/29/16 12:30 07/30/16 12:29 Procedures/MDM EKG read by me: Rate/Rhythm: Sinus tachycardia Intervals: Normal Impression: Sinus tachycardia without ischemia Chest x-ray negative per radiology. Admit MDM: Patient's infectious symptoms have not stabilized and the patient is at risk of rapid decompensation. The patient will be admitted for careful hydration, antibiotic therapy, and infectious source control. Severe Sepsis criteria: Infectious source: Infected left sacral decubitus ulcer End organ damage indicated by: No end organ damage at this time Sepsis Management: Time of recognition of sepsis: Upon arrival Within 3 hours of recognition: Blood cultures x 2 before broad-spectrum antibiotics: Yes 30 ml/kg NS bolus Completed Initial lactate 1.3 Repeat lactate pending Time of recognition of septic shock: No septic shock Septic Shock Assessment: Any lactic acid > 4.0 No Persistent hypotension (SBP < 90 or 40 mmHg drop, MAP < 65) despite 30 mL/kg IV fluid bolus No Volume Re-assessment for Septic Shock (post 30 ml/kg bolus): No septic shock at this time Persistent Hypotension Treatment: Comfort care No Central line Not Required Vasopressor started Not required I considered further perfusion assessment with CVP measurement, SCVO2, bedside ultrasound volume assessment, passive leg raise, trial of further fluid bolus. And proceeded with 30 ml/kg fluid bolus of NSS, broad spectrum antibiotics, and admission. The patient also was found to have anemia with a hemoglobin of less than 8 and will be transfused 2 units of packed red blood cells Accepting Care Team Current data and ongoing care discussed. Admitting Physician: Dr. Fermin from the panel team for admission [employer] Substation(s): None Outstanding Data: Culture results and repeat lactic acid Critical Care: Critical care time 35 minutes excluding all billable procedures Emergent fluid management while maintaining close respiratory support. Provision of immediate and broad-spectrum antibiotic therapy. Simultaneous assessment for possible sources in order to direct targeted therapy. Consideration for invasive and chemical support to prevent cardiopulmonary collapse. Departure Diagnosis: Primary Impression: Sepsis Qualified Code: A41.9 - Sepsis, due to unspecified organism Additional Impressions: Decubitus ulcer Qualified Code: L89.159 - Decubitus ulcer of sacral region, unspecified ulcer stage Anemia Qualified Code: D64.9 - Anemia, unspecified type Condition: ELPIDIO Moreno MD July 29, 2016 12:16
[2016-07-29] MEDS ORDERED: ONDANSETRON 4 MG INJ IV PRN ×2 (12:30→15:30)
[2016-07-29] MEDS ORDERED: ACETAMINOPHEN 325 MG TAB PO PRN (12:30)
[2016-07-29] MEDS ORDERED: ALPR0.254 PO (13:06)
[2016-07-29] MEDS ORDERED: FER325 PO (13:07)
[2016-07-29] MEDS ORDERED: DOCU-159 PO (13:07)
[2016-07-29] MEDS ORDERED: ONDA-43 PO (13:07)
[2016-07-29] MEDS ORDERED: HYDROCODONE/APAP (10/325) TAB PO ONE (14:30)
[2016-07-29 14:38] VITALS: TEMP 97.8
[2016-07-29] MEDS ORDERED: NACL 0.9% 3 ML SYG IV SCH (15:30)
[2016-07-29] MEDS ORDERED: ALPRAZOLAM 0.25 MG TAB PO PRN (15:30)
[2016-07-29] MEDS ORDERED: NITROGLYCERIN (SL) 0.4 MG TAB SL PRN (15:30)
[2016-07-29] MEDS ORDERED: ONDANSETRON 4 MG TAB PO PRN (15:30)
[2016-07-29] MEDS ORDERED: NA PHOSPHATE/BIPHOS 133 ML ENEMA PR PRN (15:30)
[2016-07-29] MEDS ORDERED: DOCUSATE SODIUM 100 MG CAP PO PRN ×2 (15:30)
[2016-07-29] MEDS ORDERED: VANCOMYCIN IV PER PHARMACY XX SCH (15:30)
[2016-07-29] MEDS ORDERED: MAGNESIUM HYDROXIDE 30ML CUP PO PRN (15:30)
[2016-07-29] MEDS ORDERED: morphine (ER) 15 MG TAB PO PRN (15:30)
[2016-07-29 15:44] VITALS: BP 140/80; PULSE 86; RESP 16
[2016-07-29 15:55] VITALS: Ht 162.6 cm; Wt 143.0 kg
[2016-07-29] MEDS ORDERED: VANCOMYCIN 1.5 GM in SOD CHLORIDE 0.9% 250 ML IVPB ONE (17:00)
--- NOTE | 2016-07-29 17:14 | HP ---
DATE OF ADMISSION: 07/29/2016 CHIEF COMPLAINT: Shortness of breath. HISTORY OF PRESENT ILLNESS: A 70-year-old female with past medical history of morbid obesity, neuro paige, and Guillain-[place] syndrome who has been having shortness of breath symptoms that began this morning. She also had some subjective fevers at home. She also had some tremors as well. Denied a ny coughing. No chest pain. No headaches or dizziness or loss of consciousness. No upper or lower GI bleeding. No abdominal pain. No nausea or vomiting. She was brought in by EMS. When she came in, she was found with a large left-sided buttock wound which appeared to have a significant amount of drainage and foul smelling, and she was also found on admission with fever of 100.9. ADMISSION DATA: Hemoglobin was found to be 7.6. She was started on PRBC transfusion in the ER. PAST MEDICAL HISTORY: The patient was last here in our hospital from 04/25/2016 to 04/26/2016. At the time, she was treated for UTI at that time. PAST SURGICAL HISTORY: As stated above. ALLERGIES: NO KNOWN DRUG ALLERGIES. MEDICATIONS AT HOME: 1. Ferrous sulfate 325 mg b.i.d. 2. Coumadin 1 mg daily. 3. Alprazolam 0.25 mg p.o. t.i.d. p.r.n. 4. [place] 10/325 one tab p.o. q. 6 p.r.n. 5. MS Contin 30 mg p.o. q. 8 hours p.r.n. 6. Lasix 40 mg daily. 7. Colace 100 mg p.o. b.i.d. p.r.n. 8. Nexium 40 mg daily. 9. Zofran 4 mg p.o. q. 6 p.r.n. PAST SURGICAL HISTORY: Unknown. SOCIAL HISTORY: Negative for smoking, drinking, or IV drug abuse. PHYSICAL EXAMINATION: VITAL SIGNS: Today, T-max 100.9, pulse 77 to 118, respirations 22, blood pressure 127/83, saturatin g at 94% on 4 liters nasal cannula. GENERAL: The patient lying in bed, morbidly obese, but answering questions appropriately. No acute distress. HEENT: Pupils equal, round, react to light. Extraocular muscles intact. NECK: Supple, no thyromegaly. LUNGS: Clear to auscultation bilaterally. CARDIOVASCULAR: S1, S2 heard. No rubs or gallops. ABDOMEN: Soft, nontender, nondistended. Normal bowel sounds. No rebound or guarding. Obese. MUSCULOSKELETAL: Large wound to the left buttock with drainage and surrounding erythema. There is 3+ lower extremity edema bilaterally to the mid calves. NEUROLOGIC: No focal deficits. LABORATORY DATA: WBC 12.0, hemoglobin 7.6, hematocrit 25.6, platelets 352. Sodium 136, potassium 4 .5, chloride 95, CO2 29, BUN 23, creatinine 1.0, glucose 155. Lactic acid 1.3. LFTs are normal. C hest x-ray showed no acute disease in the chest. ASSESSMENT AND PLAN: A 70-year-old female with shortness of breath for 1 day found with left buttoc k wound infection, fever, leading to sepsis and also anemia. 1. Shortness of breath. Again, likely secondary to a combination of the patient's anemia and sepsi s. We will admit the patient to the med/surg floor, put him on broad-spectrum antibiotics, check TS H, A1c, and lipid panel, IV fluids, get a PT and OT consults as well. We will do wound culture as w ell and get a wound nurse consult. Suspect her sepsis and shortness of breath ae likely secondary t o at least some component of this infection. 2. Anemia. Unclear source. Again, the patient has been ordered for 2 units of PRBC transfusion. Consider checking occult stool test as well. We will hold anticoagulants for now, specifically her home Coumadin; she takes a low dose. 3. GI prophylaxis, Nexium. 4. Deep venous thrombosis prophylaxis, sequential compression devices. Dictated By: EMPERATRIZ MARTINEZ/BOLA Conf#: [id number] DID#: [id number]
[2016-07-29] MEDS: PIPER-TAZO 3.375 GM IV (PMX) 100 ML IVPB SCH (17:54)
[2016-07-29] MEDS: SOD CHLORIDE 0.9% 1,000 ML IV SCH (17:55)
[2016-07-29] MEDS: PANTOPRAZOLE (EC) 40 MG TAB PO SCH (17:55)
[2016-07-29 20:10] VITALS: BP 178/77; RESP 20
[2016-07-29] MEDS: FERROUS SULFATE (EC) 325 MG TAB PO SCH (20:57)
[2016-07-29] MEDS ORDERED: HEPARIN 5,000 UNIT/0.5 ML VIAL SC SCH (21:00)
[2016-07-29] MEDS: HYDROCODONE/APAP (5/325) TAB PO PRN (21:03)
[2016-07-30] MEDS: PIPER-TAZO 3.375 GM IV (PMX) 100 ML IVPB SCH ×4 (00:32→18:02)
--- NOTE | 2016-07-30 00:42 | CONS ---
DATE OF ADMISSION: 07/29/2016 DATE OF CONSULTATION: 07/29/2016 TYPE OF CONSULTATION: Infectious Disease. REASON FOR CONSULTATION: Antibiotic management. HISTORY OF PRESENT ILLNESS: Jennifer Bailey is a 70-year-old female who comes in with shortness of breath and is being seen for antibiotic management. Her past problems include: 1. Morbid obesity. 2. Neuropathy. 3. History of Guillain-[place] syndrome. The patient comes in with shortness of breath. She had some subjective fevers at home as well as tr emors. She was found to have a large left-sided buttock wound which appeared to have a significant amount of drainage and foul smell, and she was found to have a fever of 100.9. On admission, her wh ite count was 12,000, H and H of 7.6 and 25.6, platelet count 352,000. BUN and creatinine 23 over 1 .0. Chest x-ray showed no acute disease. PAST MEDICAL HISTORY: Operations: None documented. The patient was hospitalized here in April and treated for urinary tract infection. FAMILY HISTORY: Noncontributory. SOCIAL HISTORY: She does not smoke, drink or abuse drugs. ALLERGIES: NONE TO PENICILLIN, SULFA OR FOODS. MEDICATIONS: Per chart. REVIEW OF SYSTEMS: As per HPI. PHYSICAL EXAMINATION: GENERAL: The patient is a well-developed, well-nourished, actually morbidly obese female who is yovany rt, responsive. No acute distress. VITAL SIGNS: T-max 100.9, respirations 22, pulse varies from 77 to 118. SKIN: Without generalized rash. HEENT: Within normal limits. NECK: Supple. LYMPH NODES: None palpable. CHEST: Decreased breath sounds at the bases. HEART: Without murmur or gallop. ABDOMEN: Soft, obese, nontender without organosplenomegaly or masses. EXTREMITIES: She has a large left buttock wound with drainage and surrounding erythema. She also h as 3+ edema going from the ankles to the calves. RECTAL AND GENITAL: Deferred. NEUROLOGIC: No focal neurological abnormalities. IMPRESSION AND PLAN: The patient comes in now with a left buttock wound, infection and fever. She was started on vancomycin and Zosyn. Will await the culture reports and continue her on this regime n. I will dictate my findings to the hospitalist. Dictated By: PAUL IRWIN MD, JD/BOLA Conf#: [id number] DID#: [id number]
[2016-07-30] MEDS: SOD CHLORIDE 0.9% 1,000 ML IV SCH ×4 (01:01→21:01)
[2016-07-30] MEDS: HYDROCODONE/APAP (5/325) TAB PO PRN ×5 (03:00→21:40)
[2016-07-30] MEDS: ACETAMINOPHEN 325 MG TAB PO PRN ×3 (07:23→18:31)
[2016-07-30 08:14] VITALS: BP 169/71; RESP 20
[2016-07-30] MEDS: PANTOPRAZOLE (EC) 40 MG TAB PO SCH (08:44)
[2016-07-30] MEDS: FERROUS SULFATE (EC) 325 MG TAB PO SCH ×2 (08:44→21:40)
[2016-07-30] MEDS ORDERED: FUROSEMIDE 40 MG TAB PO SCH (09:00)
[2016-07-30] MEDS: ALBUTEROL/IPRATROPIUM (NEB) 3 ML AMP HHN PRN ×2 (09:03→14:16)
[2016-07-30 10:41] LABS: ADD SCAN DIFF NO
--- NOTE | 2016-07-30 10:41 | PN ---
Date/Time of Note Date/Time of Note DATE: 07/30/16 TIME: 10:37 Assessment/Plan VTE Prophylaxis VTE Prophylaxis Intervention: SCD's Lines/Catheters IV Catheter Type (from Nrs): Peripheral IV Assessment/Plan Chief Complaint/Hosp Course ASSESSMENT AND PLAN: 70-year-old female with shortness of breath for 1 day found with left buttock wound infection, fever, leading to sepsis and also anemia. 1. Shortness of breath. Again, likely secondary to a combination of the patient 's anemia and sepsis - continue care on med/surg floor, broad-spectrum antibiotics, - f/u TSH, A1c, and lipid panel, PT and OT consults as well. - f/u wound culture as well wound nurse consult rec's 2. Anemia. Unclear source. Again, the patient has received 2 units of PRBC transfusion. - f/u occult stool test as well. -hold anticoagulants for now, specifically her home Coumadin; she takes a low dose. 3. GI prophylaxis, Nexium. 4. Deep venous thrombosis prophylaxis, sequential compression devices. Problems: Subjective 24 Hr Interval Summary Free Text/Dictation Pt had pRBC transfusion yesterday. Seen by wound nurse and ID teams as well. No acute events overnight. Exam/Review of Systems Vital Signs Vitals Vital Signs Date Time Temp Pulse Resp B/P Pulse Ox O2 Delivery O2 Flow Rate FiO2 07/30/16 09:06 3.0 07/30/16 09:05 77 24 97 Nasal Cannula 07/30/16 08:14 98.0 169/71 Intake and Output 07/29/16 07/29/16 07/30/16 15:00 23:00 07:00 Intake Total 336 ml 340 ml 1570 ml Output Total 1550 ml Balance 336 ml 340 ml 20 ml Exam GENERAL: The patient lying in bed, morbidly obese, but answering questions appropriately. No acute distress. HEENT: Pupils equal, round, react to light. Extraocular muscles intact. NECK: Supple, no thyromegaly. LUNGS: Clear to auscultation bilaterally. CARDIOVASCULAR: S1, S2 heard. No rubs or gallops. ABDOMEN: Soft, nontender, nondistended. Normal bowel sounds. No rebound or guarding. Obese. MUSCULOSKELETAL: Large wound to the left buttock with drainage and surrounding erythema. There is 3+ lower extremity edema bilaterally to the mid calves. NEUROLOGIC: No focal deficits. Results Result Diagram: 07/29/16 1119 07/29/16 1119 Results 24 hrs Laboratory Tests Test 07/29/16 11:19 07/29/16 12:15 07/29/16 16:21 White Blood Count 12.0 #H Red Blood Count 3.36 L Hemoglobin 7.6 L Hematocrit 25.6 L Mean Corpuscular Volume 76.2 L Mean Corpuscular Hemoglobin 22.6 L Mean Corpuscular Hemoglobin Concent 29.7 L Red Cell Distribution Width 16.7 H Platelet Count 352 Mean Platelet Volume 8.8 # Neutrophils % 81.6 H Lymphocytes % 13.4 L Monocytes % 3.8 Eosinophils % 0.4 Basophils % 0.2 Nucleated Red Blood Cells % 0.0 Neutrophils # 9.8 H Lymphocytes # 1.6 Monocytes # 0.5 Eosinophils # 0.1 Basophils # 0.0 Nucleated Red Blood Cells # 0.0 Prothrombin Time 14.3 H Prothrombin Time Ratio 1.1 INR International Normalized Ratio 1.11 Activated Partial Thromboplast Time 29.5 Sodium Level 136 Potassium Level 4.5 Chloride Level 95 L Carbon Dioxide Level 29 Anion Gap 17 H Blood Urea Nitrogen 23 H Creatinine 1.00 Glucose Level 155 Lactic Acid Level 1.3 1.0 1.0 Calcium Level 8.5 Total Bilirubin 0.1 L Direct Bilirubin 0.00 Indirect Bilirubin 0.1 Aspartate Amino Transf (AST/SGOT) 22 Alanine Aminotransferase (ALT/SGPT) 30 Alkaline Phosphatase 77 Troponin I < 0.012 Total Protein 8.3 H Albumin 3.1 L Globulin 5.20 H Albumin/Globulin Ratio 0.59 Free Thyroxine 0.93 Medications Medications Current Medications Ondansetron HCl (Zofran Inj) 4 mg Q6H PRN IV NAUSEA AND/OR VOMITING; Start at 15:30 Acetaminophen (Tylenol Tab) 650 mg Q6H PRN PO PAIN LEVEL 1-3 OR FEVER Last administered on 07/30/16 07:23; Admin Dose 650 MG; Start 07/29/16 at 15:30 Acetaminophen/ Hydrocodone Bitart ([place] (5/325)) 1 tab Q6H PRN PO MODERATE PAIN LEVEL 4-6 Last administered on 07/30/16 09:13; Admin Dose 1 TAB; Start at 15:30 Morphine Sulfate (morphine) 2 mg Q4H PRN IV SEVERE PAIN LEVEL 7-10; Start 07/29 at 15:30 Docusate Sodium (Colace) 100 mg Q12H PRN PO CONSTIPATION; Start 07/29/16 at 15: 30 Magnesium Hydroxide (Milk Of Mag) 30 ml DAILY PRN PO CONSTIPATION; Start at 15:30 Sodium Biphosphate/ Sodium Phosphate (Fleet Enema) 133 ml DAILY PRN PA CONSTIPATION; Start 07/29/16 at 15:30 Lorazepam 0.5 mg 0.5 mg Q6H PRN IV ANXIETY; Start 07/29/16 at 15:30 Sodium Chloride 1,000 ml @ 100 mls/hr Q10H IV Last administered on 07/29/16 17:55; Admin Dose 100 MLS/HR; Start 07/29/16 at 15:01 Piperacillin Sod/ Tazobactam Sod (Zosyn 3.375gm/ 100 ml (Pmx)) 100 ml @ 200 mls /hr Q6 IVPB Last administered on 07/30/16 06:07; Admin Dose 200 MLS/HR; Start 07/29/16 at 18:00 Vancomycin HCl (Vanco Iv Per Pharmacy) VANCOMYCIN PER PHARMACY NOTE XX ; Start 07/29/16 at 15:30 Nitroglycerin (Nitroglycerin (Sl Tab) 0.4 Mg) 1 tab Q5M PRN SL ANGINA; Start at 15:30 Alprazolam (Xanax) 0.25 mg TID PRN PO ANXIETY; Start 07/29/16 at 15:30 Docusate Sodium (Colace) 100 mg BID PRN PO CONSTIPATION; Start 07/29/16 at 15: 30 Ferrous Sulfate (Ferrous Sulfate (Ec)) 325 mg BID PO Last administered on 08:44; Admin Dose 325 MG; Start 07/29/16 at 21:00 Furosemide (Lasix) 40 mg DAILY PO Last administered on 07/30/16 08:44; Admin Dose 40 MG; Start 07/30/16 at 09:00 Ondansetron HCl 4 mg 4 mg Q6H PRN PO NAUSEA AND/OR VOMITING; Start 07/29/16 at 15:30 Vancomycin HCl/ Sodium Chloride (Vancocin/NS) 500 ml @ 125 mls/hr Q24H IVPB ; Start 07/30/16 at 13:00 Pantoprazole (Protonix Tab) 40 mg DAILY PO Last administered on 07/30/16t 08:44 ; Admin Dose 40 MG; Start 07/29/16 at 17:00 Furosemide (Lasix) 20 mg ONCE ONCE IV ; Start 07/30/16 at 11:00; Stop 07/30/16 at 11:01; Status EMPERATRIZ LUDWIG July 30, 2016 10:41
[2016-07-30 10:43] LABS: POTASSIUM 4.1 mmol/L (3.5-5.1)
[2016-07-30 10:45] LABS: CREATININE 0.84 mg/dl (0.44-1.00)
[2016-07-30 10:46] LABS: PHOSPHORUS 3.5 mg/dl (2.5-4.9)
[2016-07-30 10:47] LABS: CALCIUM 7.7 mg/dl (8.4-10.2); MAGNESIUM 1.6 mg/dl (1.7-2.5)
[2016-07-30] MEDS ORDERED: FUROSEMIDE 20 MG INJ IV ONE (11:00)
[2016-07-30 11:01] VITALS: BP 115/56; PULSE 83; RESP 20
[2016-07-30 12:41] LABS: CHOL/HDL RATIO 5.7 RATIO
[2016-07-30 13:13] LABS: THYROID STIMULATING HORMONE 5.89 MIU/L (0.465-4.680)
[2016-07-30 13:32] LABS: BASOPHILS % 0.4 % (0.0-2.0); EOSINOPHILS # 0.3 10^3/ul (0.0-0.5); EOSINOPHILS % 3.4 % (0.0-7.0); HEMATOCRIT 27.8 % (37.0-47.0); HEMOGLOBIN 8.5 g/dl (12.0-16.0); LYMPHOCYTES # 1.6 10^3/ul (0.8-2.9); LYMPHOCYTES % 16.2 % (15.0-51.0); MEAN CORPUSCULAR HEMOGLOBIN 23.9 pg (29.0-33.0); MEAN CORPUSCULAR HGB CONC 30.6 g/dl (32.0-37.0); MEAN CORPUSCULAR VOLUME 78.3 fl (82.0-101.0); MEAN PLATELET VOLUME 8.4 fl (7.4-10.4); MONOCYTE # 0.4 10^3/ul (0.3-0.9); MONOCYTES % 3.8 % (0.0-11.0); NEUTROPHIL # 7.4 10^3/ul (1.6-7.5); NEUTROPHILS % 75.5 % (39.0-77.0); PLATELET COUNT 285 10^3/UL (140-415); RED BLOOD COUNT 3.55 10^6/ul (4.20-5.40); RED CELL DISTRIBUTION WIDTH 16.9 % (11.5-14.5); WHITE BLOOD COUNT 9.8 10^3/ul (4.8-10.8)
--- NOTE | 2016-07-30 13:39 | PN ---
DATE: 07/30/2016 SUBJECTIVE: No events overnight. The patient is alert, eating lunch, looks comfortable. Denies pa in, no fevers. No labs this morning. MICROBIOLOGY: Blood cultures remain negative. ANTIMICROBIALS: The patient is on: 1. IV vancomycin. 2. Zosyn. PHYSICAL EXAMINATION: GENERAL: Morbidly obese elderly woman who is awake, in no distress. HEENT: Head atraumatic, normocephalic. Sclerae anicteric. Buccal mucosa dry. NECK: Obese. CHEST: Rise symmetrical. Breath sounds diminished to bases. HEART: S1, S2. ABDOMEN: Soft, bowel sounds present. EXTREMITIES: With bilateral lower extremity edema. ASSESSMENT: 1. Sepsis with fever, leukocytosis, tachycardia on admission. 2. Multiple decubiti with probable infected left buttock wound. 3. Morbid obesity. 4. History of Guillain-[place] syndrome. PLAN: The patient remains stable. We will keep her on current antibiotics. Order wound culture. Continue local wound care . Dictated By: JIM BLAIR BEAVER TRAPPER for PAUL MCNEIL/BOLA Conf#: [id number] DID#: [id number]
[2016-07-30] MEDS: VANCOMYCIN 2 GM in SOD CHLORIDE 0.9% 500 ML IVPB SCH (13:45)
[2016-07-30] MEDS: SODIUM HYPOCHLORITE 0.125% 473 ML BTL IRR SCH ×3 (14:00→21:41)
[2016-07-30] MEDS ORDERED: MAGNESIUM SULFATE 2 GM/50 ML 50 ML IVPB ONE (14:30)
--- NOTE | 2016-07-30 14:38 | RADRPT ---
Echocardiogram Report Patient Name: JAY PAULINO Gender: Female Date: 1945 Study Date: 30-Jul-2016 Resist Coater Developer: Corin Acevedo [facility] Location: 628 Ref. Physician: EMPERATRIZ ADAMS Quality: Adequate Procedures: Transthoracic echocardiogram with complete 2D, M-Mode, and doppler examination. Indications: Shortness of breath. 2D/M Mode Doppler Measurement Value Normal Ranges Measurement Value Normal Ranges LVIDd 2D 4.6 3.5 - 5.6 cm AV Peak Fernando 1.9 m/sec LVIDs 2D 2.4 2.1 - 4.1 cm AV Peak PG 15.0 mmHg LVPWd 2D 1.1 0.6 - 1.1 cm LVOT Peak Fernando 1.7 m/sec IVSd 2D 1.2 0.6 - 1.1 cm LVOT Peak PG 11.5 mmHg AoR Diam 2D 2.7 2.0 - 3.7 cm MV E Peak Fernando 0.9 m/sec EDV 2D 96.0 cm3 MV A Peak Fernando 1.0 m/sec ESV 2D 13.6 cm3 MV E/A 0.9 LA Dimen 2D 3.8 2.3 - 4.0 cm MV Decel Time 169 msec MV Decel [place] 5 MV E/A 0.9 TR Peak Fernando 3.3 m/sec TR Peak PG 43.0 mmHg RVSP 51.0 mmHg Findings Left Ventricle: Normal left ventricular systolic function. Normal left ventricular cavity size. Mild concentric left ventricular hypertrophy. Ejection fraction is visually estimated at 65 %. Tissue Doppler/Mitral Doppler indices are consistent with impaired relaxation (Stage I diastolic dysfunction). Right Ventricle: Normal right ventricular size. Normal right ventricular systolic function. Left Atrium: The left atrium is normal in size. Right Atrium: The right atrium is normal in size. Mitral Valve: Mitral valve leaflets appear mildly thickened. Mild mitral annular calcification. Mild mitral valve regurgitation. Aortic Valve: No significant aortic stenosis or insufficiency. Aortic cusps appear mildly calcified. Tricuspid Valve: Normal appearance of the tricuspid valve. Estimated peak PA systolic pressure 51 mmHg. There is mild tricuspid regurgitation. Pulmonic Valve: Normal pulmonic valve appearance. Pericardium: Normal pericardium with no significant pericardial effusion. Aorta: Normal aortic root. IVC: Dilated IVC with respiratory collapse consistent with elevated right atrial pressure. Conclusions 1.Normal left ventricular systolic function. Normal left ventricular cavity size. Mild concentric left ventricular hypertrophy. Ejection fraction is visually estimated at 65 %. Tissue Doppler/Mitral Doppler indices are consistent with impaired relaxation (Stage I diastolic dysfunction). 2.Normal right ventricular size. Normal right ventricular systolic function. 3.The left atrium is normal in size. 4.The right atrium is normal in size. 5.Mild mitral valve regurgitation. 6.No significant aortic stenosis or insufficiency. 7.Estimated peak PA systolic pressure 51 mmHg. There is mild tricuspid regurgitation. 8.Normal pericardium with no significant pericardial effusion. Electronically Signed By: Yusuf Govea 30-Jul-2016 14:37:05 -0700 Patient Name: JYA PAULINO Study Date: 30-Jul-2016 [id number]
[2016-07-30] MEDS: NYSTATIN 30 GM POWDER BTL TOP SCH ×2 (18:12→21:41)
[2016-07-30] MEDS: FUROSEMIDE 40 MG INJ IV SCH (18:20)
[2016-07-30 20:02] VITALS: BP 120/56; RESP 18
[2016-07-31] MEDS: PIPER-TAZO 3.375 GM IV (PMX) 100 ML IVPB SCH ×4 (00:24→20:42)
[2016-07-31] MEDS: SOD CHLORIDE 0.9% 1,000 ML IV SCH ×2 (00:25→17:01)
[2016-07-31] MEDS: ACETAMINOPHEN 325 MG TAB PO PRN (00:30)
[2016-07-31] MEDS: HYDROCODONE/APAP (5/325) TAB PO PRN ×3 (01:35→10:47)
[2016-07-31] MEDS: FUROSEMIDE 40 MG INJ IV SCH ×2 (06:01→18:27)
[2016-07-31 07:55] LABS: ADD SCAN DIFF NO
[2016-07-31 08:00] LABS: BASOPHILS % 0.5 % (0.0-2.0); EOSINOPHILS # 0.4 10^3/ul (0.0-0.5); EOSINOPHILS % 4.6 % (0.0-7.0); HEMATOCRIT 29.3 % (37.0-47.0); LYMPHOCYTES # 1.7 10^3/ul (0.8-2.9); LYMPHOCYTES % 19.8 % (15.0-51.0); MEAN CORPUSCULAR HEMOGLOBIN 23.9 pg (29.0-33.0); MEAN CORPUSCULAR HGB CONC 30.7 g/dl (32.0-37.0); MEAN CORPUSCULAR VOLUME 77.7 fl (82.0-101.0); MEAN PLATELET VOLUME 8.7 fl (7.4-10.4); MONOCYTE # 0.3 10^3/ul (0.3-0.9); MONOCYTES % 3.6 % (0.0-11.0); NEUTROPHIL # 6.2 10^3/ul (1.6-7.5); NEUTROPHILS % 70.7 % (39.0-77.0); PLATELET COUNT 333 10^3/UL (140-415); RED BLOOD COUNT 3.77 10^6/ul (4.20-5.40); RED CELL DISTRIBUTION WIDTH 17.2 % (11.5-14.5); WHITE BLOOD COUNT 8.7 10^3/ul (4.8-10.8)
[2016-07-31 08:15] VITALS: BP 133/63; RESP 16
[2016-07-31 08:25] LABS: CALCIUM 8.3 mg/dl (8.4-10.2); CREATININE 0.9 mg/dl (0.44-1.00); POTASSIUM 3.6 mmol/L (3.5-5.1)
[2016-07-31] MEDS: PANTOPRAZOLE (EC) 40 MG TAB PO SCH (08:35)
[2016-07-31] MEDS: FERROUS SULFATE (EC) 325 MG TAB PO SCH ×2 (08:35→20:42)
[2016-07-31] MEDS: SODIUM HYPOCHLORITE 0.125% 473 ML BTL IRR SCH ×2 (08:41→20:52)
[2016-07-31] MEDS: LORAZEPAM 2 MG INJ IV PRN ×2 (08:41→20:37)
[2016-07-31] MEDS: NYSTATIN 30 GM POWDER BTL TOP SCH ×2 (08:42→20:53)
--- NOTE | 2016-07-31 09:00 | CONS ---
DATE OF ADMISSION: 07/29/2016 DATE OF CONSULTATION: 07/31/2016 PALLIATIVE CARE CONSULTATION TIME: 0739 hours. HISTORY OF PRESENT ILLNESS: This is a 70-year-old female that I have taken her complete history of present illness from the patient herself. She presented to [facility] with weakne ss, hypersomnolence and refused multiple transfers to the emergency room via paramedics and finally came here and was found to have inflammatory cellulitic wound in her left buttock. She has been adm itted and is treated with antibiotics and being seen by infectious disease consultation service. The patient has comorbid medical problems which include morbid obesity, neuropathy of the left lower ex tremity, chronic pain syndrome, and for unclear reasons, she is on a low dose of Coumadin and alpraz olam. The patient gives me a clear history over the last 2 years of medical problems including hospi talization and for an unknown medical illness at that time and then transferred to a senior living unit and had a prolonged stay of approximately 5 months for rehabilitation. She states she left be cause she was not improving. It is still unclear why she has her neuropathy, according to the stephen thompson, and she felt that she was not getting adequate workup. The reason for me talking to the patient i s to ascertain whether or not a change in her code status, per patient's request, is based upon a antoinette holtr medical illnesses or other psychosocial issues. The patient is pleasant and cooperative with th e examination, lucid, does not appear to be in any major acute distress, nor appears to be depressed or anxious. She is well spoken and very clear with her desires and level of care she would like to receive. Medication, allergies, major medical problems and medications are as per reconciliation sheets. ALLERGIES: NO KNOWN DRUG ALLERGIES. MAJOR MEDICAL PROBLEMS IN THE PAST: Please refer to history of present illness. SOCIAL HISTORY: Patient lives at home with her mother and daughter, and she has a caregiver. REVIEW OF SYSTEMS: As per history of present illness. PHYSICAL EXAMINATION: GENERAL: She is a morbidly obese female, who is in no major acute distress. VITAL SIGNS: Blood pressure 120/56, pulse of 82 and regular, respirations of 18, temperature 97.6 d egrees, 97% saturation on 2 liters FIO2. NEUROLOGIC: She is oriented x3. Cranial nerves II through XII are grossly intact. Motor and senso ry findings are grossly within normal limits. Short-term memory is intact. Long-term memory is inta ct. She does not confabulate, she does not ingratiate her stories when she is speaking to me. She is mood. Affect is nondepressed and clear. Laboratory tests have been reviewed. Insofar as palliative care issues, I have had a long-term conv ersation with the patient and she is the decision-maker on her own behalf and no one else, although she has spoken to her daughter also about her decisions not to live in a chronic vegetative conditio n in the event that something catastrophic happens to her. She has a clear understanding of what sh e does not want to be, and that is to live on any artificial generated life support. She accepts he r quality of life would be poor if that would happen to her. Her current quality of life, as I under stand, is reasonably good, although she states she has chronic pain syndrome and she has just been t reated with opioids. She has very strong cultural feelings towards her level of care in the event t hat something catastrophic happens to her. CAREGIVER CONCERNS: Once again, her family has addressed this issue with her, that she wants not be maintained on life support and are in agreement with her. She has discussed this detail, she state s, with her daughter. Goals of care have been discussed also and the patient would like to have some workup for her left lower extremity neuropathic discomfort. She states that she has not had a thor ough workup and relies upon her health care team at this time to give her some indication as to whet her or not she has a reversible medical problem. prognosis is poor. The patient is morbidly obese and does not express any desire to change her lifestyle in eating habits. Palliative performa nce scale is 60%. RECOMMENDATIONS: I have explored in detail the patient's desires not be maintained on long-term art ificial nutrition or ventilation. She has made a very positive decision that at her age group and t he chronicity of her medical problems, that she does not want to live in a morbid condition, that I believe is a very sound decision on her part. Psychosocial issues have been addressed and there are no legal ethical issues that I can clearly identify. Goals of care have been discussed with her an d that is to continue with her level of care and cure her underlying infection and then make a recom mendation for a safe discharge. A POLST form should be addressed prior to this lady being discharge d from the hospital. I will make the appropriate change in her code status. Dictated By: CHERYL BRANDT MD LP/NTS Conf#: [id number] DID#: [id number]
--- NOTE | 2016-07-31 11:46 | PN ---
Date/Time of Note Date/Time of Note DATE: 07/31/16 TIME: 11:43 Assessment/Plan VTE Prophylaxis VTE Prophylaxis Intervention: SCD's Lines/Catheters IV Catheter Type (from Nrs): Peripheral IV Urinary Cath still in place: Yes Reason Cath still needed: urinary retention Assessment/Plan Chief Complaint/Hosp Course ASSESSMENT AND PLAN: 70-year-old female with shortness of breath for 1 day found with left buttock wound infection, fever, leading to sepsis and also anemia. 1. Shortness of breath. Again, likely secondary to a combination of the patient 's anemia and sepsis - continue care on med/surg floor, broad-spectrum antibiotics, - f/u PT and OT consults as well. - f/u wound culture as well wound nurse consult rec's 2. Anemia. Unclear source. Again, the patient has received 2 units of PRBC transfusion earlier this admission. - f/u occult stool test as well. -hold anticoagulants for now, specifically her home Coumadin; she takes a low dose. 3. GI prophylaxis, Nexium. 4. Deep venous thrombosis prophylaxis, sequential compression devices. Problems: Subjective 24 Hr Interval Summary Free Text/Dictation Still waiting to be seen by PT team. Seen by palliative care team. Pt DNR/DNI now, but not actively suicidal. Has some general body pains. Exam/Review of Systems Vital Signs Vitals Vital Signs Date Time Temp Pulse Resp B/P Pulse Ox O2 Delivery O2 Flow Rate FiO2 07/31/16 08:15 97.5 84 16 133/63 94 07/31/16 04:16 2.0 07/30/16 20:00 Nasal Cannula Intake and Output 07/30/16 07/30/16 07/31/16 15:00 23:00 07:00 Intake Total 1100 ml 900 ml Output Total 1800 ml Balance 1100 ml -900 ml Exam GENERAL: The patient lying in bed, morbidly obese, but answering questions appropriately. No acute distress. HEENT: Pupils equal, round, react to light. Extraocular muscles intact. NECK: Supple, no thyromegaly. LUNGS: Clear to auscultation bilaterally. CARDIOVASCULAR: S1, S2 heard. No rubs or gallops. ABDOMEN: Soft, nontender, nondistended. Normal bowel sounds. No rebound or guarding. Obese. MUSCULOSKELETAL: Large wound to the left buttock with drainage and surrounding erythema. There is 3+ lower extremity edema bilaterally to the mid calves. NEUROLOGIC: No focal deficits. Results Result Diagram: 07/31/16 0740 07/31/16 0740 Results 24 hrs Laboratory Tests Test 07/30/16 13:25 07/31/16 07:40 White Blood Count 9.8 8.7 Red Blood Count 3.55 L 3.77 L Hemoglobin 8.5 L 9.0 L Hematocrit 27.8 L 29.3 L Mean Corpuscular Volume 78.3 L 77.7 L Mean Corpuscular Hemoglobin 23.9 L 23.9 L Mean Corpuscular Hemoglobin Concent 30.6 L 30.7 L Red Cell Distribution Width 16.9 H 17.2 H Platelet Count 285 333 Mean Platelet Volume 8.4 8.7 Neutrophils % 75.5 70.7 Lymphocytes % 16.2 19.8 Monocytes % 3.8 3.6 Eosinophils % 3.4 4.6 Basophils % 0.4 0.5 Nucleated Red Blood Cells % 0.0 0.0 Neutrophils # 7.4 6.2 Lymphocytes # 1.6 1.7 Monocytes # 0.4 0.3 Eosinophils # 0.3 0.4 Basophils # 0.0 0.0 Nucleated Red Blood Cells # 0.0 0.0 Sodium Level 139 Potassium Level 3.6 Chloride Level 99 Carbon Dioxide Level 31 Anion Gap 13 Blood Urea Nitrogen 16 Creatinine 0.90 Glucose Level 124 Calcium Level 8.3 L Medications Medications Current Medications Ondansetron HCl (Zofran Inj) 4 mg Q6H PRN IV NAUSEA AND/OR VOMITING; Start at 15:30 Acetaminophen (Tylenol Tab) 650 mg Q6H PRN PO PAIN LEVEL 1-3 OR FEVER Last administered on 07/31/16t 00:30; Admin Dose 650 MG; Start 07/29/16 at 15:30 Morphine Sulfate (morphine) 2 mg Q4H PRN IV SEVERE PAIN LEVEL 7-10; Start 07/29 at 15:30 Docusate Sodium (Colace) 100 mg Q12H PRN PO CONSTIPATION; Start 07/29/16 at 15: 30 Magnesium Hydroxide (Milk Of Mag) 30 ml DAILY PRN PO CONSTIPATION; Start at 15:30 Sodium Biphosphate/ Sodium Phosphate (Fleet Enema) 133 ml DAILY PRN AL CONSTIPATION; Start 07/29/16 at 15:30 Lorazepam 0.5 mg 0.5 mg Q6H PRN IV ANXIETY Last administered on 07/31/16 08:41 ; Admin Dose 0.5 MG; Start 07/29/16 at 15:30 Sodium Chloride 1,000 ml @ 100 mls/hr Q10H IV Last administered on 07/31/16 00:25; Admin Dose 100 MLS/HR; Start 07/29/16 at 15:01 Piperacillin Sod/ Tazobactam Sod (Zosyn 3.375gm/ 100 ml (Pmx)) 100 ml @ 200 mls /hr Q6 IVPB Last administered on 07/31/16 05:49; Admin Dose 200 MLS/HR; Start 07/29/16 at 18:00 Vancomycin HCl (Vanco Iv Per Pharmacy) VANCOMYCIN PER PHARMACY NOTE XX ; Start 07/29/16 at 15:30 Nitroglycerin (Nitroglycerin (Sl Tab) 0.4 Mg) 1 tab Q5M PRN SL ANGINA; Start at 15:30 Alprazolam (Xanax) 0.25 mg TID PRN PO ANXIETY; Start 07/29/16 at 15:30 Docusate Sodium (Colace) 100 mg BID PRN PO CONSTIPATION; Start 07/29/16 at 15: 30 Ferrous Sulfate (Ferrous Sulfate (Ec)) 325 mg BID PO Last administered on 08:35; Admin Dose 325 MG; Start 07/29/16 at 21:00 Ondansetron HCl 4 mg 4 mg Q6H PRN PO NAUSEA AND/OR VOMITING Last administered on 07/31/16 06:49; Admin Dose 4 MG; Start 07/29/16 at 15:30 Vancomycin HCl/ Sodium Chloride (Vancocin/NS) 500 ml @ 125 mls/hr Q24H IVPB Last administered on 07/30/16 13:45; Admin Dose 125 MLS/HR; Start 07/30/16 at 13:00 Pantoprazole (Protonix Tab) 40 mg DAILY PO Last administered on 07/31/16 08:35 ; Admin Dose 40 MG; Start 07/29/16 at 17:00 Acetaminophen/ Hydrocodone Bitart ([place] (5/325)) 1 tab Q4 PRN PO MODERATE PAIN LEVEL 4-6 Last administered on 07/31/16 10:47; Admin Dose 1 TAB; Start at 13:00 Nystatin (Nystatin Powder) 1 applic BID TOP Last administered on 07/31/16 08: 42; Admin Dose 1 APPLIC; Start 07/30/16 at 14:00 Collagenase (Santyl) 1 applic DAILY TOP ; Start 08/09/16 at 14:00 Sodium Hypochlorite (Dakin'S (1/4 Strength)) 1 applic BID IRR Last administered on 07/31/16 08:41; Admin Dose 1 APPLIC; Start 07/30/16 at 14:00; Stop 08/09/16 at 13:59 Miscellaneous Information (*Rx Drug Level Order Reminder*) VANCO TROUGH @ 1, 200 ON... ONCE ONCE XX ; Start 08/01/16 at 12:00; Stop 08/01/16 at 12:01 EMPERATRIZ ADAMS July 31, 2016 11:46
[2016-07-31] MEDS: HYDROCODONE/APAP (10/325) TAB PO PRN ×3 (12:21→20:42)
[2016-07-31] MEDS: CYCLOBENZAPRINE 10 MG TAB PO SCH ×2 (12:21→20:42)
--- NOTE | 2016-07-31 14:02 | CONS ---
Date/Time of Note Date/Time of Note DATE: 07/31/16 TIME: 13:59 Assessment/Plan Assessment/Plan Chief Complaint/Hosp Course SUBJECTIVE: No events overnight. The patient is alert, looks comfortable. Denies pain, no fevers. MICROBIOLOGY: Blood cultures remain negative. ANTIMICROBIALS: 1. IV vancomycin. 2. Zosyn. PHYSICAL EXAMINATION: GENERAL: Morbidly obese elderly woman who is awake, in no distress. HEENT: Head atraumatic, normocephalic. Sclerae anicteric. Buccal mucosa dry. NECK: Obese. CHEST: Rise symmetrical. Breath sounds diminished to bases. HEART: S1, S2. ABDOMEN: Soft, bowel sounds present. EXTREMITIES: With bilateral lower extremity edema. ASSESSMENT: 1. Sepsis with fever, leukocytosis, tachycardia on admission. 2. Multiple decubiti with probable infected left buttock wound==> cx + GNR. 3. Morbid obesity. 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 PLAN: The patient remains stable. We will keep her on current antibiotics. Follow wound culture. Continue local wound care DW staff Problems: Consultation Date/Type/Reason Admit Date/Time July 29, 2016 at 12:07 Initial Consult Date Type of Consultation: ID Exam/Review of Systems Vital Signs Vitals Vital Signs Date Time Temp Pulse Resp B/P Pulse Ox O2 Delivery O2 Flow Rate FiO2 07/31/16 08:15 97.5 84 16 133/63 94 07/31/16 04:16 2.0 07/30/16 20:00 Nasal Cannula Intake and Output 07/30/16 07/30/16 07/31/16 15:00 23:00 07:00 Intake Total 1100 ml 900 ml Output Total 1800 ml Balance 1100 ml -900 ml Results Result Diagram: 07/31/16 0740 07/31/16 0740 Results 24 hrs Laboratory Tests Test 07/31/16 07:40 White Blood Count 8.7 Red Blood Count 3.77 L Hemoglobin 9.0 L Hematocrit 29.3 L Mean Corpuscular Volume 77.7 L Mean Corpuscular Hemoglobin 23.9 L Mean Corpuscular Hemoglobin Concent 30.7 L Red Cell Distribution Width 17.2 H Platelet Count 333 Mean Platelet Volume 8.7 Neutrophils % 70.7 Lymphocytes % 19.8 Monocytes % 3.6 Eosinophils % 4.6 Basophils % 0.5 Nucleated Red Blood Cells % 0.0 Neutrophils # 6.2 Lymphocytes # 1.7 Monocytes # 0.3 Eosinophils # 0.4 Basophils # 0.0 Nucleated Red Blood Cells # 0.0 Sodium Level 139 Potassium Level 3.6 Chloride Level 99 Carbon Dioxide Level 31 Anion Gap 13 Blood Urea Nitrogen 16 Creatinine 0.90 Glucose Level 124 Calcium Level 8.3 L Medications Medications Current Medications Ondansetron HCl (Zofran Inj) 4 mg Q6H PRN IV NAUSEA AND/OR VOMITING; Start at 15:30 Acetaminophen (Tylenol Tab) 650 mg Q6H PRN PO PAIN LEVEL 1-3 OR FEVER Last administered on 07/31/16 00:30; Admin Dose 650 MG; Start 07/29/16 at 15:30 Morphine Sulfate (morphine) 2 mg Q4H PRN IV SEVERE PAIN LEVEL 7-10; Start 07/29 at 15:30 Docusate Sodium (Colace) 100 mg Q12H PRN PO CONSTIPATION; Start 07/29/16 at 15: 30 Magnesium Hydroxide (Milk Of Mag) 30 ml DAILY PRN PO CONSTIPATION; Start at 15:30 Sodium Biphosphate/ Sodium Phosphate (Fleet Enema) 133 ml DAILY PRN CO CONSTIPATION; Start 07/29/16 at 15:30 Lorazepam 0.5 mg 0.5 mg Q6H PRN IV ANXIETY Last administered on 07/31/16 08:41 ; Admin Dose 0.5 MG; Start 07/29/16 at 15:30 Sodium Chloride 1,000 ml @ 100 mls/hr Q10H IV Last administered on 07/31/16 00:25; Admin Dose 100 MLS/HR; Start 07/29/16 at 15:01 Piperacillin Sod/ Tazobactam Sod (Zosyn 3.375gm/ 100 ml (Pmx)) 100 ml @ 200 mls /hr Q6 IVPB Last administered on 07/31/16 11:46; Admin Dose 200 MLS/HR; Start 07/29/16 at 18:00 Vancomycin HCl (Vanco Iv Per Pharmacy) VANCOMYCIN PER PHARMACY NOTE XX ; Start 07/29/16 at 15:30 Nitroglycerin (Nitroglycerin (Sl Tab) 0.4 Mg) 1 tab Q5M PRN SL ANGINA; Start at 15:30 Alprazolam (Xanax) 0.25 mg TID PRN PO ANXIETY; Start 07/29/16 at 15:30 Docusate Sodium (Colace) 100 mg BID PRN PO CONSTIPATION; Start 07/29/16 at 15: 30 Ferrous Sulfate (Ferrous Sulfate (Ec)) 325 mg BID PO Last administered on 08:35; Admin Dose 325 MG; Start 07/29/16 at 21:00 Ondansetron HCl 4 mg 4 mg Q6H PRN PO NAUSEA AND/OR VOMITING Last administered on 07/31/16 06:49; Admin Dose 4 MG; Start 07/29/16 at 15:30 Vancomycin HCl/ Sodium Chloride (Vancocin/NS) 500 ml @ 125 mls/hr Q24H IVPB Last administered on 07/30/16 13:45; Admin Dose 125 MLS/HR; Start 07/30/16 at 13:00 Pantoprazole (Protonix Tab) 40 mg DAILY PO Last administered on 07/31/16 08:35 ; Admin Dose 40 MG; Start 07/29/16 at 17:00 Nystatin (Nystatin Powder) 1 applic BID TOP Last administered on 07/31/16 08: 42; Admin Dose 1 APPLIC; Start 07/30/16 at 14:00 Collagenase (Santyl) 1 applic DAILY TOP ; Start 08/09/16 at 14:00 Sodium Hypochlorite (Dakin'S (1/4 Strength)) 1 applic BID IRR Last administered on 07/31/16 08:41; Admin Dose 1 APPLIC; Start 07/30/16 at 14:00; Stop 08/09/16 at 13:59 Miscellaneous Information (*Rx Drug Level Order Reminder*) VANCO TROUGH @ 1, 200 ON... ONCE ONCE XX ; Start 08/01/16 at 12:00; Stop 08/01/16 at 12:01 Acetaminophen/ Hydrocodone Bitart ([place] ([address])) 1 tab Q4H PRN PO PAIN Last administered on 07/31/16 12:21; Admin Dose 1 TAB; Start 07/31/16 at 12:00 Cyclobenzaprine HCl (Flexeril) 10 mg TID PO Last administered on 07/31/16 12: 21; Admin Dose 10 MG; Start 07/31/16 at 13:00 JIM BLAIR NP July 31, 2016 14:02
[2016-07-31] MEDS: VANCOMYCIN 2 GM in SOD CHLORIDE 0.9% 500 ML IVPB SCH (14:03)
--- NOTE | 2016-07-31 14:55 | RADRPT ---
PROCEDURE: CT Lumbar Spine without contrast. CLINICAL INDICATION: Chronic lower extremity weakness and numbness. 70-year-old female. TECHNIQUE: The study was performed on a high-resolution CT scanner. Spiral axial 1 mm images were obtained through the lumbar spine and reformatted at 2.5 mm slice thickness. Sagittal and coronal r eformations were created from the raw axial data. The images were reviewed on a PACS workstation. One or more of the following dose reduction techniques were used: - Automated exposure control. - Adjustment of the mA and/or kV according to patient size. Use of iterative reconstruction technique. The CTDIvol is 38.6 mGy and the DLP is 1136 mGycm. COMPARISON: No prior studies are available for comparison. FINDINGS: There are degenerative osteophytes in the lower thoracic spine from T9 to the level of T12. T12-L1: There is ventral spondylosis and dorsal disk space narrowing. A Schmorl's node impinges on the inferior endplate of T12. A 2.3 mm right lateral disk bulge and 3.2 mm right paracentral disk b ulge is identified. The neural canal and nerve root foramina are unremarkable. There are ventral o steophytes off of L1. The neural canal L1 is normal in size. L1-2: There is ventral spondylosis and mild dorsal disk space narrowing. No significant disk bulge or herniations identified. The neural canal and nerve root foramina are normal. The L2 vertebral body is intact. L2-3: There is mild ventral spondylosis and moderate dorsal disk space narrowing. No disk bulge or herniations identified. The neural canal and nerve root foramina are unremarkable. The neural can al at L3 is normal in size. L3 is unremarkable. L3-4: There is mild dorsal disk space narrowing and ventral spondylosis. The neural canal and nerv e root foramina are unremarkable. No disk bulge or herniations identified. There are small ventral osteophytes off of L4. L4 is intact. There are degenerative changes in the articular facets. L4-5: There are degenerative changes in the articular facets bilaterally. There is a 2.9 mm miles central dorsal disk osteophyte complex without evidence of a disk herniation. The nerve root forami na are normal. The neural canal at L5 is normal in size. L5-S1: There are degenerative changes in the articular facets. There is a borderline bony left ner ve root canal stenosis. There is a borderline bony right nerve root canal stenosis. The sacrum and SI joints are unremarkable. There is a 4.5 mm AP central and paracentral disk bulge at L5-S1. There are plate-like areas of atelectasis in the left lower lobe. No pleural effusion is noted. Th ere are vascular calcifications in the lower thoracic and abdominal aorta. IMPRESSION: 1. 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 2. 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 4.5 mm AP central and paracentral disk bulge at L5-S1. RPTAT:AAJJ Physician Valentina Date Time Electronically viewed and signed by Catrachito Marshall Physician on 07/31/2016 14:55 /
--- NOTE | 2016-07-31 15:08 | RADRPT ---
PROCEDURE: CT Cervical Spine without contrast. CLINICAL INDICATION: chronic LE weakness/numbness + obese - r/o spine abnormality TECHNIQUE: A CT of the cervical spine was performed on a [employer] 64-slice CT scanner uti lizing thin section axial images from the skull base through the thoracic inlet. Sagittal and coron al reformatted images were made. The CTDIvol is 22.2 mGy and the DLP is 447 mGycm. COMPARISON: No. FINDINGS: The mastoid air cells and base of the skull are unremarkable. There are degenerative changes around the atlanto-axial joint. No vertebral body subluxation is seen. No fracture is evident. C2-3: There are degenerative changes in the articular facets. No disk bulge or herniations identifie d. No disk bulge or herniations identified. The neural canal and nerve root foramina are unremarkab le. There are osteophytes off the inferior endplate of C3. C3-4: There is ventral spondylosis. The intervertebral disk spaces relatively well maintained. No s ignificant disk bulge or protrusion is evident. There is no central canal stenosis or foraminal narr owing. C4-5: The disc is normal in height. No significant disk bulge or protrusion is evident. There is no central canal stenosis or foraminal narrowing. The articular facets are normal. C5 is unremarkable . C5-6: There is ventral spondylosis and moderate disk space narrowing. There is a small central and paracentral disk osteophyte complex. The nerve root foramina are patent bilaterally. The neural ca nal at C6 is normal in size. C6-7: There is disk space narrowing with mild ventral and dorsal spondylosis. The neural canal and nerve root foramina are normal. No disk bulge or herniations identified. There is no central canal stenosis or foraminal narrowing. There are ventral osteophytes off of C7. C7-T1: There is mild disk space narrowing and ventral spondylosis. No dorsal disk bulge or herniati ons identified. The neural canal and nerve root foramina are normal. T1 is intact. There is streak artifacts across the shoulder which limit soft tissue detail. The piriform sinuses trachea and parapharyngeal spaces are normal. There are vascular calcifications in the left carotid bulb. IMPRESSION: 1. Osteoarthritis of the cervical spine. No acute cervical spine fracture is identified. 2. Atherosclerotic calcification in the left carotid bulb without evidence of a stenosis. RPTAT:AAJJ Catrachito Marshall Physician Date Time Electronically viewed and signed by Catrachito Marshall Physician on 07/31/2016 15:08 /
--- NOTE | 2016-07-31 15:17 | RADRPT ---
PROCEDURE: CT thoracic spine without contrast. CLINICAL INDICATION: Chronic lower extremity weakness and numbness. Obesity. TECHNIQUE: A CT of the thoracic spine was performed on a [employer] CT scan ner utilizing high-resolution axial imaging from the cervical thoracic junction through the thoracol umbar junction. Sagittal, coronal, and multiplanar reformatted images were made. CTDI: 37.6 and DLP: 1445 One or more of the following dose reduction techniques were used: - Automated exposure control. - Adjustment of the mA and/or kV according to patient size. Use of iterative reconstruction technique. COMPARISON: No. FINDINGS: There are degenerative osteophytes in the thoracic spine. There is a kyphosis of the mid thoracic sp ine. The neural canal is normal in size. The nerve root foramina are patent. There is no evidence of a disk bulge or herniation. No acute bony fracture or bone metastasis is identified. There are mi ld degenerative changes in the articular facets at T10-11, T11-12 and at L1-2 and L2-3. There is a S chmorl's node and 10 Carolyn on the inferior plate of T12. There is some plate-like atelectasis or scarring in the right lower lobe and in the medial aspect of the left lower lobe. Vascular calcifications are noted in the thoracic and abdominal aorta. The pulmonary vasculature is normal. IMPRESSION: 1. 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 2. 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 3. Plate-like densities in the right left lower lobes consistent with atelectasis or scarring. RPTAT:AAJJ Physician Valentina Date Time Electronically viewed and signed by Physician Valentina on 07/31/2016 15:17 LUCY/
[2016-07-31 19:59] VITALS: BP 158/69; RESP 18
[2016-07-31] MEDS: morphine 2 MG INJ IV PRN (20:40)
[2016-08-01] MEDS: morphine 2 MG INJ IV PRN ×3 (01:26→11:00)
[2016-08-01] MEDS: PIPER-TAZO 3.375 GM IV (PMX) 100 ML IVPB SCH ×4 (01:26→17:47)
[2016-08-01] MEDS: HYDROCODONE/APAP (10/325) TAB PO PRN ×4 (01:26→20:48)
[2016-08-01] MEDS: SOD CHLORIDE 0.9% 1,000 ML IV SCH ×3 (03:59→17:54)
[2016-08-01] MEDS: FUROSEMIDE 40 MG INJ IV SCH ×2 (06:29→17:47)
[2016-08-01 07:54] VITALS: BP 153/61; RESP 20
[2016-08-01] MEDS: CYCLOBENZAPRINE 10 MG TAB PO SCH ×3 (09:04→20:48)
[2016-08-01] MEDS: FERROUS SULFATE (EC) 325 MG TAB PO SCH ×2 (09:04→20:47)
[2016-08-01] MEDS: NYSTATIN 30 GM POWDER BTL TOP SCH ×2 (09:04→22:01)
[2016-08-01] MEDS: PANTOPRAZOLE (EC) 40 MG TAB PO SCH (09:04)
[2016-08-01] MEDS: LORAZEPAM 2 MG INJ IV PRN (09:09)
[2016-08-01] MEDS: ACETAMINOPHEN 325 MG TAB PO PRN ×2 (09:09→18:49)
[2016-08-01 10:27] LABS: ADD SCAN DIFF NO
[2016-08-01 10:32] LABS: BASOPHILS % 0.5 % (0.0-2.0); EOSINOPHILS # 0.5 10^3/ul (0.0-0.5); EOSINOPHILS % 6.1 % (0.0-7.0); HEMATOCRIT 29.9 % (37.0-47.0); HEMOGLOBIN 9.1 g/dl (12.0-16.0); LYMPHOCYTES % 24.4 % (15.0-51.0); MEAN CORPUSCULAR HEMOGLOBIN 24.1 pg (29.0-33.0); MEAN CORPUSCULAR HGB CONC 30.4 g/dl (32.0-37.0); MEAN CORPUSCULAR VOLUME 79.3 fl (82.0-101.0); MEAN PLATELET VOLUME 8.6 fl (7.4-10.4); MONOCYTE # 0.3 10^3/ul (0.3-0.9); MONOCYTES % 4.3 % (0.0-11.0); NEUTROPHIL # 5.1 10^3/ul (1.6-7.5); NEUTROPHILS % 64.2 % (39.0-77.0); PLATELET COUNT 336 10^3/UL (140-415); RED BLOOD COUNT 3.77 10^6/ul (4.20-5.40); RED CELL DISTRIBUTION WIDTH 17.7 % (11.5-14.5)
[2016-08-01 10:48] LABS: POTASSIUM 3.3 mmol/L (3.5-5.1)
[2016-08-01 10:50] LABS: CREATININE 0.91 mg/dl (0.44-1.00)
[2016-08-01 10:51] LABS: CALCIUM 8.1 mg/dl (8.4-10.2)
[2016-08-01] MEDS: SODIUM HYPOCHLORITE 0.125% 473 ML BTL IRR SCH ×2 (11:00→20:47)
--- NOTE | 2016-08-01 11:08 | PN ---
Date/Time of Note Date/Time of Note DATE: 08/01/16 TIME: 11:03 Assessment/Plan VTE Prophylaxis VTE Prophylaxis Intervention: SCD's Lines/Catheters IV Catheter Type (from Nrs): Peripheral IV Urinary Cath still in place: Yes Reason Cath still needed: urinary retention Assessment/Plan Chief Complaint/Hosp Course ASSESSMENT AND PLAN: 70-year-old female with shortness of breath for 1 day found with left buttock wound infection, fever, leading to sepsis and also anemia. 1. Shortness of breath - improved. Again, likely secondary to a combination of the patient's anemia and sepsis - continue care on med/surg floor, broad-spectrum antibiotics, - f/u PT and OT consults as well. - f/u wound culture as well wound nurse consult rec's 2. Anemia. Unclear source. Again, the patient has received 2 units of PRBC transfusion earlier this admission. H/H stable now. - f/u occult stool test as well. -hold anticoagulants for now, specifically her home Coumadin; she takes a low dose. 3. GI prophylaxis, Nexium. 4. Deep venous thrombosis prophylaxis, sequential compression devices. 5. LBP - CT L spine shows + disk ds L5-S1 - pain control, f/u pain mngt, PT Problems: Subjective 24 Hr Interval Summary Free Text/Dictation Pt had CT scan spine performed yesterday, still with some pain smpts. Could not work with PT yesterday (possibly refused). Exam/Review of Systems Vital Signs Vitals Vital Signs Date Time Temp Pulse Resp B/P Pulse Ox O2 Delivery O2 Flow Rate FiO2 08/01/16 07:54 97.7 89 20 153/61 94 08/01/16 00:02 2.0 07/31/16 20:03 Nasal Cannula Intake and Output 07/31/16 07/31/16 08/01/16 15:00 23:00 07:00 Intake Total 600 ml 1680 ml 1400 ml Output Total 3100 ml 1900 ml Balance 600 ml -1420 ml -500 ml Exam GENERAL: The patient lying in bed, morbidly obese, but answering questions appropriately. No acute distress. HEENT: Pupils equal, round, react to light. Extraocular muscles intact. NECK: Supple, no thyromegaly. LUNGS: Clear to auscultation bilaterally. CARDIOVASCULAR: S1, S2 heard. No rubs or gallops. ABDOMEN: Soft, nontender, nondistended. Normal bowel sounds. No rebound or guarding. Obese. MUSCULOSKELETAL: Large wound to the left buttock with drainage and surrounding erythema. There is 3+ lower extremity edema bilaterally to the mid calves. NEUROLOGIC: No focal deficits. Results Result Diagram: 08/01/1692408/01/16924 Results 24 hrs Laboratory Tests Test 08/01/16 09:25 White Blood Count 8.0 Red Blood Count 3.77 L Hemoglobin 9.1 L Hematocrit 29.9 L Mean Corpuscular Volume 79.3 L Mean Corpuscular Hemoglobin 24.1 L Mean Corpuscular Hemoglobin Concent 30.4 L Red Cell Distribution Width 17.7 H Platelet Count 336 Mean Platelet Volume 8.6 Neutrophils % 64.2 Lymphocytes % 24.4 Monocytes % 4.3 Eosinophils % 6.1 Basophils % 0.5 Nucleated Red Blood Cells % 0.0 Neutrophils # 5.1 Lymphocytes # 2.0 Monocytes # 0.3 Eosinophils # 0.5 Basophils # 0.0 Nucleated Red Blood Cells # 0.0 Sodium Level 139 Potassium Level 3.3 L Chloride Level 98 Carbon Dioxide Level 29 Anion Gap 15 Blood Urea Nitrogen 16 Creatinine 0.91 Glucose Level 101 Calcium Level 8.1 L Medications Medications Current Medications Ondansetron HCl (Zofran Inj) 4 mg Q6H PRN IV NAUSEA AND/OR VOMITING; Start at 15:30 Acetaminophen (Tylenol Tab) 650 mg Q6H PRN PO PAIN LEVEL 1-3 OR FEVER Last administered on 08/01/16 09:09; Admin Dose 650 MG; Start 07/29/16 at 15:30 Morphine Sulfate (morphine) 2 mg Q4H PRN IV SEVERE PAIN LEVEL 7-10 Last administered on 08/01/16 11:00; Admin Dose 2 MG; Start 07/29/16 at 15:30 Docusate Sodium (Colace) 100 mg Q12H PRN PO CONSTIPATION Last administered on 06:29; Admin Dose 100 MG; Start 07/29/16 at 15:30 Magnesium Hydroxide (Milk Of Mag) 30 ml DAILY PRN PO CONSTIPATION; Start at 15:30 Sodium Biphosphate/ Sodium Phosphate (Fleet Enema) 133 ml DAILY PRN [place] CONSTIPATION Last administered on 08/01/16 09:05; Admin Dose 133 ML; Start at 15:30 Lorazepam 0.5 mg 0.5 mg Q6H PRN IV ANXIETY Last administered on 08/01/16 09:09 ; Admin Dose 0.5 MG; Start 07/29/16 at 15:30 Sodium Chloride 1,000 ml @ 100 mls/hr Q10H IV Last administered on 08/01/16 03:59; Admin Dose 100 MLS/HR; Start 07/29/16 at 15:01 Piperacillin Sod/ Tazobactam Sod (Zosyn 3.375gm/ 100 ml (Pmx)) 100 ml @ 200 mls /hr Q6 IVPB Last administered on 08/01/16 06:26; Admin Dose 200 MLS/HR; Start 07/29/16 at 18:00 Vancomycin HCl (Vanco Iv Per Pharmacy) VANCOMYCIN PER PHARMACY NOTE XX ; Start 07/29/16 at 15:30 Nitroglycerin (Nitroglycerin (Sl Tab) 0.4 Mg) 1 tab Q5M PRN SL ANGINA; Start at 15:30 Alprazolam (Xanax) 0.25 mg TID PRN PO ANXIETY Last administered on 07/31/16 20 :42; Admin Dose 0.25 MG; Start 07/29/16 at 15:30 Docusate Sodium (Colace) 100 mg BID PRN PO CONSTIPATION; Start 07/29/16 at 15: 30 Ferrous Sulfate (Ferrous Sulfate (Ec)) 325 mg BID PO Last administered on 09:04; Admin Dose 325 MG; Start 07/29/16 at 21:00 Ondansetron HCl 4 mg 4 mg Q6H PRN PO NAUSEA AND/OR VOMITING Last administered on 07/31/16 06:49; Admin Dose 4 MG; Start 07/29/16 at 15:30 Vancomycin HCl/ Sodium Chloride (Vancocin/NS) 500 ml @ 125 mls/hr Q24H IVPB Last administered on 07/31/16 14:03; Admin Dose 125 MLS/HR; Start 07/30/16 at 13:00 Pantoprazole (Protonix Tab) 40 mg DAILY PO Last administered on 08/01/16 09:04 ; Admin Dose 40 MG; Start 07/29/16 at 17:00 Nystatin (Nystatin Powder) 1 applic BID TOP Last administered on 08/01/16 09: 04; Admin Dose 1 APPLIC; Start 07/30/16 at 14:00 Collagenase (Santyl) 1 applic DAILY TOP ; Start 08/09/16 at 14:00 Sodium Hypochlorite (Dakin'S (1/4 Strength)) 1 applic BID IRR Last administered on 08/01/16 11:00; Admin Dose 1 APPLIC; Start 07/30/16 at 14:00; Stop 08/09/16 at 13:59 Miscellaneous Information (*Rx Drug Level Order Reminder*) VANCO TROUGH @ 1, 200 ON... ONCE ONCE XX ; Start 08/01/16 at 12:00; Stop 08/01/16 at 12:01 Acetaminophen/ Hydrocodone Bitart ([place] (10)) 1 tab Q4H PRN PO PAIN Last administered on 08/01/16 06:29; Admin Dose 1 TAB; Start 07/31/16 at 12:00 Cyclobenzaprine HCl (Flexeril) 15 mg TID PO ; Start 08/01/16 at 13:[address] T- spine: IMPRESSION: 1. 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 2. 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 3. Plate-like densities in the right left lower lobes consistent with atelectasis or scarring. B. CT C-spine IMPRESSION: 1. Osteoarthritis of the cervical spine. No acute cervical spine fracture is identified. 2. Atherosclerotic calcification in the left carotid bulb without evidence of a stenosis. C. CT L-spine IMPRESSION: 1. Osteoarthritis of the lower thoracic and lumbar spine with a Schmorl's node impinging on the inferior endplate of 04/19. 2. 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 4.5 mm AP central and paracentral disk bulge at L5-S1. EMPERATRIZ ADAMS August 01, 2016 11:08
--- NOTE | 2016-08-01 17:22 | CONS ---
Date/Time of Note Date/Time of Note DATE: 08/01/16 TIME: 17:22 Assessment/Plan Assessment/Plan Chief Complaint/Hosp Course ID PROGRESS NOTE CURRENT ABX: Vanco IV + Zosyn 24H INTERVAL SUMMARY * Lethargic, awakens, no complaints offered, pinkish orange tinged urine, afebrile, VSS, micro preliminary still pending final * MICRO: BCx(-); WOUND CULTURE Preliminary Organism 1 PROTEUS MIRABILIS QUANTITY 1+ Organism 2 ENTEROCOCCUS SPECIES QUANTITY ISOLATED FROM BROTH ONLY P. MIRAB M.I.C. RX --------- --- AMIKACIN <=2 S CEFOTAXIME S CIPROFLOXACIN <=0.25 S GENTAMICIN 4 S LEVOFLOXACIN <=0.12 S TOBRAMYCIN 8 I TRIMETHOPRIM/SULFAMETHOXAZOLE >=320 R PHYSICAL EXAMINATION: VITAL SIGNS: Afebrile, VSS, NAD GENERAL: Morbid obese F HEENT: Unremarkable NECK: Increase neck circumference LUNGS: Equal chest rise without dyspnea on observation HEART: RRR ABDOMEN: Soft, EXTREMITIES: Warm SKIN: See photos -> multiple decubs ID IMPRESSION: 70 yo F admit with: 1. Sepsis with fever, leukocytosis, tachycardia on admission. 2. Multiple decubiti with probable infected left buttock wound WOUND CULTURE Preliminary Organism 1 PROTEUS MIRABILIS QUANTITY 1+ Organism 2 ENTEROCOCCUS SPECIES QUANTITY ISOLATED FROM BROTH ONLY P. MIRAB M.I.C. RX --------- --- AMIKACIN <=2 S CEFOTAXIME S CIPROFLOXACIN <=0.25 S GENTAMICIN 4 S LEVOFLOXACIN <=0.12 S TOBRAMYCIN 8 I TRIMETHOPRIM/SULFAMETHOXAZOLE >=320 R 3. Morbid obesity. 4. History of Guillain-Compton syndrome. (-) MRSA Nares INVASIVES: PIV CURRENT ABX: Vanco IV + Zosyn ID RECOMMENDATION 1. Continue current ABX 2. [place]-orange tinged urine -- send UA C&S 3. F/U final micro pending . Problems: Consultation Date/Type/Reason Admit Date/Time July 29, 2016 at 12:07 Initial Consult Date Type of Consultation: ID Exam/Review of Systems Vital Signs Vitals Vital Signs Date Time Temp Pulse Resp B/P Pulse Ox O2 Delivery O2 Flow Rate FiO2 08/01/16 08:00 Nasal Cannula 4.0 08/01/16 07:54 97.7 89 20 153/61 94 Intake and Output 07/31/16 07/31/16 08/01/16 15:00 23:00 07:00 Intake Total 600 ml 1680 ml 1400 ml Output Total 3100 ml 1900 ml Balance 600 ml -1420 ml -500 ml Results Result Diagram: 08/01/1692408/01/16 0925 Results 24 hrs Laboratory Tests Test 08/01/16 09:25 08/01/16 12:25 White Blood Count 8.0 Red Blood Count 3.77 L Hemoglobin 9.1 L Hematocrit 29.9 L Mean Corpuscular Volume 79.3 L Mean Corpuscular Hemoglobin 24.1 L Mean Corpuscular Hemoglobin Concent 30.4 L Red Cell Distribution Width 17.7 H Platelet Count 336 Mean Platelet Volume 8.6 Neutrophils % 64.2 Lymphocytes % 24.4 Monocytes % 4.3 Eosinophils % 6.1 Basophils % 0.5 Nucleated Red Blood Cells % 0.0 Neutrophils # 5.1 Lymphocytes # 2.0 Monocytes # 0.3 Eosinophils # 0.5 Basophils # 0.0 Nucleated Red Blood Cells # 0.0 Sodium Level 139 Potassium Level 3.3 L Chloride Level 98 Carbon Dioxide Level 29 Anion Gap 15 Blood Urea Nitrogen 16 Creatinine 0.91 Glucose Level 101 Calcium Level 8.1 L Vancomycin Level Trough 25.0 *H Medications Medications Current Medications Ondansetron HCl (Zofran Inj) 4 mg Q6H PRN IV NAUSEA AND/OR VOMITING; Start at 15:30 Acetaminophen (Tylenol Tab) 650 mg Q6H PRN PO PAIN LEVEL 1-3 OR FEVER Last administered on 08/01/16t 09:09; Admin Dose 650 MG; Start 07/29/16 at 15:30 Docusate Sodium (Colace) 100 mg Q12H PRN PO CONSTIPATION Last administered on 06:29; Admin Dose 100 MG; Start 07/29/16 at 15:30 Magnesium Hydroxide (Milk Of Mag) 30 ml DAILY PRN PO CONSTIPATION; Start at 15:30 Sodium Biphosphate/ Sodium Phosphate (Fleet Enema) 133 ml DAILY PRN [place] CONSTIPATION Last administered on 08/01/16 09:05; Admin Dose 133 ML; Start at 15:30 Lorazepam 0.5 mg 0.5 mg Q6H PRN IV ANXIETY Last administered on 08/01/16 09:09 ; Admin Dose 0.5 MG; Start 07/29/16 at 15:30 Sodium Chloride 1,000 ml @ 100 mls/hr Q10H IV Last administered on 08/01/16 03:59; Admin Dose 100 MLS/HR; Start 07/29/16 at 15:01 Piperacillin Sod/ Tazobactam Sod (Zosyn 3.375gm/ 100 ml (Pmx)) 100 ml @ 200 mls /hr Q6 IVPB Last administered on 08/01/16 12:31; Admin Dose 200 MLS/HR; Start 07/29/16 at 18:00 Vancomycin HCl (Vanco Iv Per Pharmacy) VANCOMYCIN PER PHARMACY NOTE XX ; Start 07/29/16 at 15:30 Nitroglycerin (Nitroglycerin (Sl Tab) 0.4 Mg) 1 tab Q5M PRN SL ANGINA; Start at 15:30 Alprazolam (Xanax) 0.25 mg TID PRN PO ANXIETY Last administered on 07/31/16 20 :42; Admin Dose 0.25 MG; Start 07/29/16 at 15:30 Docusate Sodium (Colace) 100 mg BID PRN PO CONSTIPATION; Start 07/29/16 at 15: 30 Ferrous Sulfate (Ferrous Sulfate (Ec)) 325 mg BID PO Last administered on 09:04; Admin Dose 325 MG; Start 07/29/16 at 21:00 Ondansetron HCl (Zofran Tab) 4 mg Q6H PRN PO NAUSEA AND/OR VOMITING Last administered on 07/31/16 06:49; Admin Dose 4 MG; Start 07/29/16 at 15:30 Pantoprazole (Protonix Tab) 40 mg DAILY PO Last administered on 08/01/16 09:04 ; Admin Dose 40 MG; Start 07/29/16 at 17:00 Nystatin (Nystatin Powder) 1 applic BID TOP Last administered on 08/01/16 09: 04; Admin Dose 1 APPLIC; Start 07/30/16 at 14:00 Collagenase (Santyl) 1 applic DAILY TOP ; Start 08/09/16 at 14:00 Sodium Hypochlorite (Dakin'S (1/4 Strength)) 1 applic BID IRR Last administered on 08/01/16 11:00; Admin Dose 1 APPLIC; Start 07/30/16 at 14:00; Stop 08/09/16 at 13:59 Acetaminophen/ Hydrocodone Bitart ([place] ()) 1 tab Q4H PRN PO PAIN Last administered on 08/01/16 16:32; Admin Dose 1 TAB; Start 07/31/16 at 12:00 Cyclobenzaprine HCl 15 mg 15 mg TID PO Last administered on 08/01/16 12:31; Admin Dose 15 MG; Start 08/01/16 at 13:00 Vancomycin HCl (Vancocin) 250 ml @ 125 mls/hr Q24H IVPB ; Start 08/02/16 at 12: 00 ARNULFO BUCK NP August 01, 2016 17:22
[2016-08-01 20:32] VITALS: BP 163/74; RESP 18
[2016-08-02] MEDS: PIPER-TAZO 3.375 GM IV (PMX) 100 ML IVPB SCH ×4 (00:56→18:25)
[2016-08-02] MEDS: HYDROCODONE/APAP (10/325) TAB PO PRN ×5 (00:59→20:57)
[2016-08-02] MEDS: SOD CHLORIDE 0.9% 1,000 ML IV SCH ×2 (05:35→20:55)
[2016-08-02] MEDS: FUROSEMIDE 40 MG INJ IV SCH ×2 (05:37→17:47)
[2016-08-02 06:54] LABS: ADD UMIC YES; URINE BILIRUBIN (Dip) NEGATIVE (NEGATIVE); URINE BLOOD (Dip) 3+ (NEGATIVE); URINE COLOR LT. YELLOW (YELLOW); URINE GLUCOSE (Dip) NEGATIVE (NEGATIVE); URINE KETONES (Dip) NEGATIVE (NEGATIVE); URINE LEUKOCYTE ESTERASE (Dip) 1+ (NEGATIVE); URINE NITRITE (Dip) NEGATIVE (NEGATIVE); URINE TOTAL PROTEIN (Dip) TRACE (NEGATIVE); URINE UROBILINOGEN (Dip) 0.2 E.U./dL (0.1-1.0)
[2016-08-02 07:24] LABS: BACTERIA,URINE FEW; URINE RBCS >50 /HPF (0)
[2016-08-02 07:38] VITALS: BP 151/66; RESP 20
[2016-08-02 07:41] LABS: ADD SCAN DIFF NO
[2016-08-02 07:51] LABS: BASOPHILS % 0.5 % (0.0-2.0); EOSINOPHILS # 0.5 10^3/ul (0.0-0.5); EOSINOPHILS % 6.4 % (0.0-7.0); HEMATOCRIT 31.4 % (37.0-47.0); HEMOGLOBIN 9.3 g/dl (12.0-16.0); LYMPHOCYTES # 2.3 10^3/ul (0.8-2.9); LYMPHOCYTES % 28.4 % (15.0-51.0); MEAN CORPUSCULAR HEMOGLOBIN 23.1 pg (29.0-33.0); MEAN CORPUSCULAR HGB CONC 29.6 g/dl (32.0-37.0); MEAN CORPUSCULAR VOLUME 78.1 fl (82.0-101.0); MEAN PLATELET VOLUME 8.5 fl (7.4-10.4); MONOCYTE # 0.3 10^3/ul (0.3-0.9); MONOCYTES % 3.9 % (0.0-11.0); NEUTROPHILS % 60.2 % (39.0-77.0); PLATELET COUNT 335 10^3/UL (140-415); RED BLOOD COUNT 4.02 10^6/ul (4.20-5.40); RED CELL DISTRIBUTION WIDTH 18.1 % (11.5-14.5); WHITE BLOOD COUNT 8.2 10^3/ul (4.8-10.8)
[2016-08-02 08:22] LABS: POTASSIUM 3.1 mmol/L (3.5-5.1)
[2016-08-02 08:25] LABS: CREATININE 0.86 mg/dl (0.44-1.00)
[2016-08-02 08:26] LABS: CALCIUM 8.3 mg/dl (8.4-10.2)
[2016-08-02] MEDS: ACETAMINOPHEN 325 MG TAB PO PRN (09:00)
[2016-08-02] MEDS: SODIUM HYPOCHLORITE 0.125% 473 ML BTL IRR SCH ×2 (09:00→20:51)
[2016-08-02] MEDS: CYCLOBENZAPRINE 10 MG TAB PO SCH ×3 (09:00→20:51)
[2016-08-02] MEDS: PANTOPRAZOLE (EC) 40 MG TAB PO SCH (09:00)
[2016-08-02] MEDS: FERROUS SULFATE (EC) 325 MG TAB PO SCH ×2 (09:00→20:51)
[2016-08-02] MEDS: NYSTATIN 30 GM POWDER BTL TOP SCH ×2 (09:01→20:52)
--- NOTE | 2016-08-02 10:01 | PN ---
Date/Time of Note Date/Time of Note DATE: 08/02/16 TIME: 09:58 Assessment/Plan VTE Prophylaxis VTE Prophylaxis Intervention: SCD's Lines/Catheters IV Catheter Type (from Nrsg): Peripheral IV Central line still needed: Yes Urinary Cath still in place: Yes Reason Cath still needed: urinary retention Assessment/Plan Chief Complaint/Hosp Course ASSESSMENT AND PLAN: 70-year-old female with shortness of breath for 1 day found with left buttock wound infection, fever, leading to sepsis and also anemia. 1. Shortness of breath - improved. Again, likely secondary to a combination of the patient's anemia and sepsis from wound infx - cx = + Proteus and Enterococcus bugs. - continue care on med/surg floor, broad-spectrum antibiotics - f/u PT and OT consults as well. - f/u ID ec's 2. Anemia. Unclear source. Again, the patient has received 2 units of PRBC transfusion earlier this admission. H/H stable now. - f/u occult stool test as well. -hold anticoagulants for now, specifically her home Coumadin; she takes a low dose. 3. GI prophylaxis, Nexium. 4. Deep venous thrombosis prophylaxis, sequential compression devices. 5. LBP - CT L spine shows + disk ds L5-S1 - pain control, f/u pain mngt, PT 6. Dispo: likely home in 24 hrs with HHPT, wound care, nursing. Will need abx as well for left buttock infx likely 7-10 days worth upon d/c home (refusing SNF ) Problems: Subjective 24 Hr Interval Summary Free Text/Dictation Pt with some LBP occasionally, otherwise no acute events overnight. Exam/Review of Systems Vital Signs Vitals Vital Signs Date Time Temp Pulse Resp B/P Pulse Ox O2 Delivery O2 Flow Rate FiO2 08/02/16 07:38 98.8 95 20 151/66 98 08/01/16 20:00 Nasal Cannula 4.0 Intake and Output 08/01/16 08/01/16 08/02/16 15:00 23:00 07:00 Intake Total 100 ml 2760 ml 1600 ml Output Total 3500 ml 2800 ml Balance 100 ml -740 ml -1200 ml Exam GENERAL: The patient lying in bed, morbidly obese, but answering questions appropriately. No acute distress. HEENT: Pupils equal, round, react to light. Extraocular muscles intact. NECK: Supple, no thyromegaly. LUNGS: Clear to auscultation bilaterally. CARDIOVASCULAR: S1, S2 heard. No rubs or gallops. ABDOMEN: Soft, nontender, nondistended. Normal bowel sounds. No rebound or guarding. Obese. MUSCULOSKELETAL: Large wound to the left buttock with drainage and surrounding erythema. There is 3+ lower extremity edema bilaterally to the mid calves. NEUROLOGIC: No focal deficits. Results Result Diagram: 08/02/16 0708/02/16 0707 Results 24 hrs Laboratory Tests Test 08/01/16 12:25 08/01/16 20:30 08/02/16 07:07 Vancomycin Level Trough 25.0 *H Urine Color LT. YELLOW Urine Clarity CLEAR Urine pH 6.5 Urine Specific [place] 1.010 Urine Ketones NEGATIVE Urine Nitrite NEGATIVE Urine Bilirubin NEGATIVE Urine Urobilinogen 0.2 E.U./dL Urine Leukocyte Esterase 1+ H Urine Microscopic RBC >50 Urine Microscopic WBC 10-25 Urine Epithelial Cells RARE Urine Bacteria FEW Urine Hemoglobin 3+ H Urine Glucose NEGATIVE Urine Total Protein TRACE White Blood Count 8.2 Red Blood Count 4.02 L Hemoglobin 9.3 L Hematocrit 31.4 L Mean Corpuscular Volume 78.1 L Mean Corpuscular Hemoglobin 23.1 L Mean Corpuscular Hemoglobin Concent 29.6 L Red Cell Distribution Width 18.1 H Platelet Count 335 Mean Platelet Volume 8.5 Neutrophils % 60.2 Lymphocytes % 28.4 Monocytes % 3.9 Eosinophils % 6.4 Basophils % 0.5 Nucleated Red Blood Cells % 0.0 Neutrophils # 5.0 Lymphocytes # 2.3 Monocytes # 0.3 Eosinophils # 0.5 Basophils # 0.0 Nucleated Red Blood Cells # 0.0 Sodium Level 141 Potassium Level 3.1 L Chloride Level 103 Carbon Dioxide Level 31 Anion Gap 10 # Blood Urea Nitrogen 16 Creatinine 0.86 Glucose Level 109 Calcium Level 8.3 L Medications Medications Current Medications Ondansetron HCl (Zofran Inj) 4 mg Q6H PRN IV NAUSEA AND/OR VOMITING; Start at 15:30 Acetaminophen (Tylenol Tab) 650 mg Q6H PRN PO PAIN LEVEL 1-3 OR FEVER Last administered on 08/02/16 09:00; Admin Dose 650 MG; Start 07/29/16 at 15:30 Docusate Sodium (Colace) 100 mg Q12H PRN PO CONSTIPATION Last administered on 06:29; Admin Dose 100 MG; Start 07/29/16 at 15:30 Magnesium Hydroxide (Milk Of Mag) 30 ml DAILY PRN PO CONSTIPATION; Start at 15:30 Sodium Biphosphate/ Sodium Phosphate (Fleet Enema) 133 ml DAILY PRN [place] CONSTIPATION Last administered on 08/01/16 09:05; Admin Dose 133 ML; Start at 15:30 Lorazepam 0.5 mg 0.5 mg Q6H PRN IV ANXIETY Last administered on 08/01/16 09:09 ; Admin Dose 0.5 MG; Start 07/29/16 at 15:30 Sodium Chloride 1,000 ml @ 100 mls/hr Q10H IV Last administered on 08/02/16 05:35; Admin Dose 100 MLS/HR; Start 07/29/16 at 15:01 Piperacillin Sod/ Tazobactam Sod (Zosyn 3.375gm/ 100 ml (Pmx)) 100 ml @ 200 mls /hr Q6 IVPB Last administered on 08/02/16 05:35; Admin Dose 200 MLS/HR; Start 07/29/16 at 18:00 Vancomycin HCl (Vanco Iv Per Pharmacy) VANCOMYCIN PER PHARMACY NOTE XX ; Start 07/29/16 at 15:30 Nitroglycerin (Nitroglycerin (Sl Tab) 0.4 Mg) 1 tab Q5M PRN SL ANGINA; Start at 15:30 Alprazolam (Xanax) 0.25 mg TID PRN PO ANXIETY Last administered on 07/31/16 20 :42; Admin Dose 0.25 MG; Start 07/29/16 at 15:30 Docusate Sodium (Colace) 100 mg BID PRN PO CONSTIPATION; Start 07/29/16 at 15: 30 Ferrous Sulfate (Ferrous Sulfate (Ec)) 325 mg BID PO Last administered on 09:00; Admin Dose 325 MG; Start 07/29/16 at 21:00 Ondansetron HCl (Zofran Tab) 4 mg Q6H PRN PO NAUSEA AND/OR VOMITING Last administered on 07/31/16 06:49; Admin Dose 4 MG; Start 07/29/16 at 15:30 Pantoprazole (Protonix Tab) 40 mg DAILY PO Last administered on 08/02/16 09:00 ; Admin Dose 40 MG; Start 07/29/16 at 17:00 Nystatin (Nystatin Powder) 1 applic BID TOP Last administered on 08/02/16 09: 01; Admin Dose 1 APPLIC; Start 07/30/16 at 14:00 Collagenase (Santyl) 1 applic DAILY TOP ; Start 08/09/16 at 14:00 Sodium Hypochlorite (Dakin'S (1/4 Strength)) 1 applic BID IRR Last administered on 08/02/16 09:00; Admin Dose 1 APPLIC; Start 07/30/16 at 14:00; Stop 08/09/16 at 13:59 Acetaminophen/ Hydrocodone Bitart ([place] ()) 1 tab Q4H PRN PO PAIN Last administered on 08/02/16 05:42; Admin Dose 1 TAB; Start 07/31/16 at 12:00 Cyclobenzaprine HCl 15 mg 15 mg TID PO Last administered on 08/02/16 09:00; Admin Dose 15 MG; Start 08/01/16 at 13:00 Vancomycin HCl 250 ml @ 125 mls/hr Q24H IVPB ; Start 08/02/16 at 12:00 Potassium Chloride (KCl 40 MEQ/250 ML NS) 250 ml @ 62.5 mls/hr ONCE ONCE IVPB ; Start 08/02/16 at 10:00; Stop 08/02/16 at 13:59; Status EMPERATRIZ LUDWIG August 02, 2016 10:01
[2016-08-02] MEDS ORDERED: POTASSIUM CHLORIDE 250 ML IVPB SCH (11:00)
[2016-08-02] MEDS: WARFARIN 1 MG TAB PO SCH (11:06)
[2016-08-02] MEDS: VANCOMYCIN 1 GM in NS 250 ML IVPB SCH ×2 (12:00→16:26)
--- NOTE | 2016-08-02 17:56 | CONS ---
Date/Time of Note Date/Time of Note DATE: 08/02/16 TIME: 17:55 Assessment/Plan Assessment/Plan Chief Complaint/Hosp Course ID PROGRESS NOTE CURRENT ABX: Vanco IV + Zosyn 24H INTERVAL SUMMARY * Stable, no fevers, hematuria, urine cx pending * MICRO: BCx(-); WOUND CULTURE Preliminary Organism 1 PROTEUS MIRABILIS QUANTITY 1+ Organism 2 ENTEROCOCCUS SPECIES QUANTITY ISOLATED FROM BROTH ONLY P. MIRAB M.I.C. RX --------- --- AMIKACIN <=2 S CEFOTAXIME S CIPROFLOXACIN <=0.25 S GENTAMICIN 4 S LEVOFLOXACIN <=0.12 S TOBRAMYCIN 8 I TRIMETHOPRIM/SULFAMETHOXAZOLE >=320 R PHYSICAL EXAMINATION: VITAL SIGNS: Afebrile, VSS, NAD GENERAL: Morbid obese F HEENT: Unremarkable NECK: Increase neck circumference LUNGS: Equal chest rise without dyspnea on observation HEART: RRR ABDOMEN: Soft, EXTREMITIES: Warm SKIN: See photos -> multiple decubs ID IMPRESSION: 70 yo F admit with: 1. Sepsis with fever, leukocytosis, tachycardia on admission = RESOLVING 2. Multiple decubiti with probable infected left buttock wound WOUND CULTURE Preliminary Organism 1 PROTEUS MIRABILIS QUANTITY 1+ Organism 2 ENTEROCOCCUS SPECIES QUANTITY ISOLATED FROM BROTH ONLY P. MIRAB M.I.C. RX --------- --- AMIKACIN <=2 S CEFOTAXIME S CIPROFLOXACIN <=0.25 S GENTAMICIN 4 S LEVOFLOXACIN <=0.12 S TOBRAMYCIN 8 I TRIMETHOPRIM/SULFAMETHOXAZOLE >=320 R 3. Morbid obesity. 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 (-) MRSA Nares INVASIVES: PIV CURRENT ABX: Vanco IV + Zosyn ID RECOMMENDATION 1. Continue current ABX 2. [place]-orange tinged urine -- send UA C&S 3. F/U final micro pending . Problems: Consultation Date/Type/Reason Admit Date/Time July 29, 2016 at 12:07 Type of Consultation: ID Exam/Review of Systems Vital Signs Vitals Vital Signs Date Time Temp Pulse Resp B/P Pulse Ox O2 Delivery O2 Flow Rate FiO2 08/02/16 08:00 Nasal Cannula 4.0 08/02/16 07:38 98.8 95 20 151/66 98 Intake and Output 08/01/16 08/01/16 08/02/16 15:00 23:00 07:00 Intake Total 100 ml 2760 ml 1600 ml Output Total 3500 ml 2800 ml Balance 100 ml -740 ml -1200 ml Results Result Diagram: 08/02/16 0707 08/02/16 0707 Results 24 hrs Laboratory Tests Test 08/01/16 20:30 08/02/16 07:07 Urine Color LT. YELLOW Urine Clarity CLEAR Urine pH 6.5 Urine Specific [place] 1.010 Urine Ketones NEGATIVE Urine Nitrite NEGATIVE Urine Bilirubin NEGATIVE Urine Urobilinogen 0.2 E.U./dL Urine Leukocyte Esterase 1+ H Urine Microscopic RBC >50 Urine Microscopic WBC 10-25 Urine Epithelial Cells RARE Urine Bacteria FEW Urine Hemoglobin 3+ H Urine Glucose NEGATIVE Urine Total Protein TRACE White Blood Count 8.2 Red Blood Count 4.02 L Hemoglobin 9.3 L Hematocrit 31.4 L Mean Corpuscular Volume 78.1 L Mean Corpuscular Hemoglobin 23.1 L Mean Corpuscular Hemoglobin Concent 29.6 L Red Cell Distribution Width 18.1 H Platelet Count 335 Mean Platelet Volume 8.5 Neutrophils % 60.2 Lymphocytes % 28.4 Monocytes % 3.9 Eosinophils % 6.4 Basophils % 0.5 Nucleated Red Blood Cells % 0.0 Neutrophils # 5.0 Lymphocytes # 2.3 Monocytes # 0.3 Eosinophils # 0.5 Basophils # 0.0 Nucleated Red Blood Cells # 0.0 Sodium Level 141 Potassium Level 3.1 L Chloride Level 103 Carbon Dioxide Level 31 Anion Gap 10 # Blood Urea Nitrogen 16 Creatinine 0.86 Glucose Level 109 Calcium Level 8.3 L Medications Medications Current Medications Ondansetron HCl (Zofran Inj) 4 mg Q6H PRN IV NAUSEA AND/OR VOMITING; Start at 15:30 Acetaminophen (Tylenol Tab) 650 mg Q6H PRN PO PAIN LEVEL 1-3 OR FEVER Last administered on 08/02/16 09:00; Admin Dose 650 MG; Start 07/29/16 at 15:30 Docusate Sodium (Colace) 100 mg Q12H PRN PO CONSTIPATION Last administered on 06:29; Admin Dose 100 MG; Start 07/29/16 at 15:30 Magnesium Hydroxide (Milk Of Mag) 30 ml DAILY PRN PO CONSTIPATION; Start at 15:30 Sodium Biphosphate/ Sodium Phosphate (Fleet Enema) 133 ml DAILY PRN PA CONSTIPATION Last administered on 08/01/16 09:05; Admin Dose 133 ML; Start at 15:30 Lorazepam 0.5 mg 0.5 mg Q6H PRN IV ANXIETY Last administered on 08/01/16 09:09 ; Admin Dose 0.5 MG; Start 07/29/16 at 15:30 Sodium Chloride 1,000 ml @ 100 mls/hr Q10H IV Last administered on 08/02/16 05:35; Admin Dose 100 MLS/HR; Start 07/29/16 at 15:01 Piperacillin Sod/ Tazobactam Sod (Zosyn 3.375gm/ 100 ml (Pmx)) 100 ml @ 200 mls /hr Q6 IVPB Last administered on 08/02/16 11:07; Admin Dose 200 MLS/HR; Start 07/29/16 at 18:00 Vancomycin HCl (Vanco Iv Per Pharmacy) VANCOMYCIN PER PHARMACY NOTE XX ; Start 07/29/16 at 15:30 Nitroglycerin (Nitroglycerin (Sl Tab) 0.4 Mg) 1 tab Q5M PRN SL ANGINA; Start at 15:30 Alprazolam (Xanax) 0.25 mg TID PRN PO ANXIETY Last administered on 07/31/16 20 :42; Admin Dose 0.25 MG; Start 07/29/16 at 15:30 Docusate Sodium (Colace) 100 mg BID PRN PO CONSTIPATION; Start 07/29/16 at 15: 30 Ferrous Sulfate (Ferrous Sulfate (Ec)) 325 mg BID PO Last administered on 09:00; Admin Dose 325 MG; Start 07/29/16 at 21:00 Ondansetron HCl (Zofran Tab) 4 mg Q6H PRN PO NAUSEA AND/OR VOMITING Last administered on 07/31/16 06:49; Admin Dose 4 MG; Start 07/29/16 at 15:30 Pantoprazole (Protonix Tab) 40 mg DAILY PO Last administered on 08/02/16 09:00 ; Admin Dose 40 MG; Start 07/29/16 at 17:00 Nystatin (Nystatin Powder) 1 applic BID TOP Last administered on 08/02/16 09: 01; Admin Dose 1 APPLIC; Start 07/30/16 at 14:00 Collagenase (Santyl) 1 applic DAILY TOP ; Start 08/09/16 at 14:00 Sodium Hypochlorite (Dakin'S (1/4 Strength)) 1 applic BID IRR Last administered on 08/02/16 09:00; Admin Dose 1 APPLIC; Start 07/30/16 at 14:00; Stop 08/09/16 at 13:59 Acetaminophen/ Hydrocodone Bitart ([place] (10/325)) 1 tab Q4H PRN PO PAIN Last administered on 08/02/16 16:25; Admin Dose 1 TAB; Start 07/31/16 at 12:00 Cyclobenzaprine HCl 15 mg 15 mg TID PO Last administered on 08/02/16 12:14; Admin Dose 15 MG; Start 08/01/16 at 13:00 Vancomycin HCl (Vancocin) 250 ml @ 125 mls/hr Q24H IVPB Last administered on 16:26; Admin Dose 125 MLS/HR; Start 08/02/16 at 12:00 Warfarin Sodium (Coumadin) 1 mg DAILY@17 PO Last administered on 08/02/16 11: 06; Admin Dose 1 MG; Start 08/02/16 at 11:00 ARNULFO BUCK NP August 02, 2016 17:56
[2016-08-02 20:00] VITALS: BP 139/65; RESP 20
[2016-08-03] MEDS: PIPER-TAZO 3.375 GM IV (PMX) 100 ML IVPB SCH ×4 (00:22→17:27)
[2016-08-03] MEDS: SOD CHLORIDE 0.9% 1,000 ML IV SCH ×4 (00:25→17:28)
[2016-08-03] MEDS: HYDROCODONE/APAP (10/325) TAB PO PRN ×5 (01:05→20:25)
[2016-08-03] MEDS: FUROSEMIDE 40 MG INJ IV SCH ×2 (05:31→17:28)
[2016-08-03 07:44] VITALS: BP 133/60; RESP 20
[2016-08-03] MEDS: SODIUM HYPOCHLORITE 0.125% 473 ML BTL IRR SCH ×2 (09:04→20:26)
[2016-08-03] MEDS: NYSTATIN 30 GM POWDER BTL TOP SCH ×2 (09:04→20:26)
[2016-08-03] MEDS: PANTOPRAZOLE (EC) 40 MG TAB PO SCH (09:05)
[2016-08-03] MEDS: CYCLOBENZAPRINE 10 MG TAB PO SCH ×3 (09:05→20:24)
[2016-08-03] MEDS: FERROUS SULFATE (EC) 325 MG TAB PO SCH ×2 (09:05→20:24)
[2016-08-03 09:21] LABS: ADD SCAN DIFF NO
[2016-08-03 09:23] LABS: BASOPHIL # 0.1 10^3/ul (0.0-0.1); BASOPHILS % 0.6 % (0.0-2.0); EOSINOPHILS # 0.5 10^3/ul (0.0-0.5); EOSINOPHILS % 5.6 % (0.0-7.0); HEMATOCRIT 30.5 % (37.0-47.0); HEMOGLOBIN 9.2 g/dl (12.0-16.0); LYMPHOCYTES # 2.4 10^3/ul (0.8-2.9); LYMPHOCYTES % 30.5 % (15.0-51.0); MEAN CORPUSCULAR HEMOGLOBIN 23.7 pg (29.0-33.0); MEAN CORPUSCULAR HGB CONC 30.2 g/dl (32.0-37.0); MEAN CORPUSCULAR VOLUME 78.6 fl (82.0-101.0); MEAN PLATELET VOLUME 8.2 fl (7.4-10.4); MONOCYTE # 0.3 10^3/ul (0.3-0.9); MONOCYTES % 3.9 % (0.0-11.0); NEUTROPHIL # 4.7 10^3/ul (1.6-7.5); NEUTROPHILS % 58.7 % (39.0-77.0); PLATELET COUNT 307 10^3/UL (140-415); RED BLOOD COUNT 3.88 10^6/ul (4.20-5.40); RED CELL DISTRIBUTION WIDTH 18.3 % (11.5-14.5)
[2016-08-03 09:54] LABS: CREATININE 0.84 mg/dl (0.44-1.00)
[2016-08-03] MEDS: VANCOMYCIN 1 GM in NS 250 ML IVPB SCH (13:29)
[2016-08-03] MEDS ORDERED: POTASSIUM CHLORIDE (SR) 20 MEQ TAB PO STA ×2 (15:57→17:38)
--- NOTE | 2016-08-03 16:11 | CONS ---
Date/Time of Note Date/Time of Note DATE: 08/03/16 TIME: 16:08 Assessment/Plan Assessment/Plan Chief Complaint/Hosp Course ID PROGRESS NOTE CURRENT ABX: Vanco IV + Zosyn 24H INTERVAL SUMMARY * A/A/O - No new issues, stable, obese * MICRO: BCx(-); WOUND CULTURE WOUND CULTURE Final Organism 1 PROTEUS MIRABILIS QUANTITY 1+ Organism 2 ENTEROCOCCUS SPECIES QUANTITY ISOLATED FROM BROTH ONLY P. MIRAB ENT SPS M.I.C. RX M.I.C. RX --------- --- --------- --- AMIKACIN <=2 S AMPICILLIN >=32 R <=2 S CEFOTAXIME S CIPROFLOXACIN <=0.25 S GENTAMICIN 4 S LEVOFLOXACIN <=0.12 S PENICILLIN-G 8 S VANCOMYCIN 1 S TOBRAMYCIN 8 I TRIMETHOPRIM/SULFAMETHOXAZOLE >=320 R PHYSICAL EXAMINATION: VITAL SIGNS: Afebrile, VSS, NAD GENERAL: Morbid obese F HEENT: Unremarkable NECK: Increase neck circumference LUNGS: Equal chest rise without dyspnea on observation HEART: RRR ABDOMEN: Soft, EXTREMITIES: Warm SKIN: See photos -> multiple decubs ID IMPRESSION: 70 yo F admit with: 1. Sepsis with fever, leukocytosis, tachycardia on admission = RESOLVING 2. Multiple decubiti with probable infected left buttock wound WOUND CULTURE Final Organism 1 PROTEUS MIRABILIS QUANTITY 1+ Organism 2 ENTEROCOCCUS SPECIES QUANTITY ISOLATED FROM BROTH ONLY P. MIRAB ENT SPS M.I.C. RX M.I.C. RX --------- --- --------- --- AMIKACIN <=2 S AMPICILLIN >=32 R <=2 S CEFOTAXIME S CIPROFLOXACIN <=0.25 S GENTAMICIN 4 S LEVOFLOXACIN <=0.12 S PENICILLIN-G 8 S VANCOMYCIN 1 S TOBRAMYCIN 8 I TRIMETHOPRIM/SULFAMETHOXAZOLE >=320 R 3. Morbid obesity. 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 5. Hematuria -> Micro (-) (-) MRSA Nares INVASIVES: PIV CURRENT ABX: Vanco IV + Zosyn ID RECOMMENDATION 1. Continue current ABX 2. Possible taper to PO Levaquin + Amoxicillin when improved -- ID & surgery to follow up . . Problems: Consultation Date/Type/Reason Admit Date/Time July 29, 2016 at 12:07 Type of Consultation: ID Exam/Review of Systems Vital Signs Vitals Vital Signs Date Time Temp Pulse Resp B/P Pulse Ox O2 Delivery O2 Flow Rate FiO2 08/03/16 08:00 Nasal Cannula 2.0 08/03/16 07:44 98.5 88 20 133/60 95 Intake and Output 08/02/16 08/02/16 08/03/16 15:00 23:00 07:00 Intake Total 200 ml 2780 ml 2400 ml Output Total 4500 ml 2000 ml Balance 200 ml -1720 ml 400 ml Results Result Diagram: 08/03/16 0849 08/03/16 0849 Results 24 hrs Laboratory Tests Test 08/03/16 08:49 White Blood Count 8.0 Red Blood Count 3.88 L Hemoglobin 9.2 L Hematocrit 30.5 L Mean Corpuscular Volume 78.6 L Mean Corpuscular Hemoglobin 23.7 L Mean Corpuscular Hemoglobin Concent 30.2 L Red Cell Distribution Width 18.3 H Platelet Count 307 Mean Platelet Volume 8.2 Neutrophils % 58.7 Lymphocytes % 30.5 Monocytes % 3.9 Eosinophils % 5.6 Basophils % 0.6 Nucleated Red Blood Cells % 0.0 Neutrophils # 4.7 Lymphocytes # 2.4 Monocytes # 0.3 Eosinophils # 0.5 Basophils # 0.1 Nucleated Red Blood Cells # 0.0 Sodium Level 138 Potassium Level 3.0 L Chloride Level 102 Carbon Dioxide Level 32 H Anion Gap 7 L Blood Urea Nitrogen 14 Creatinine 0.84 Glucose Level 100 Calcium Level 8.0 L Medications Medications Current Medications Ondansetron HCl (Zofran Inj) 4 mg Q6H PRN IV NAUSEA AND/OR VOMITING; Start at 15:30 Acetaminophen (Tylenol Tab) 650 mg Q6H PRN PO PAIN LEVEL 1-3 OR FEVER Last administered on 08/02/16 09:00; Admin Dose 650 MG; Start 07/29/16 at 15:30 Docusate Sodium (Colace) 100 mg Q12H PRN PO CONSTIPATION Last administered on 06:29; Admin Dose 100 MG; Start 07/29/16 at 15:30 Magnesium Hydroxide (Milk Of Mag) 30 ml DAILY PRN PO CONSTIPATION; Start at 15:30 Sodium Biphosphate/ Sodium Phosphate (Fleet Enema) 133 ml DAILY PRN MD CONSTIPATION Last administered on 08/01/16 09:05; Admin Dose 133 ML; Start at 15:30 Lorazepam 0.5 mg 0.5 mg Q6H PRN IV ANXIETY Last administered on 08/01/16 09:09 ; Admin Dose 0.5 MG; Start 07/29/16 at 15:30 Sodium Chloride 1,000 ml @ 100 mls/hr Q10H IV Last administered on 08/03/16 00:25; Admin Dose 100 MLS/HR; Start 07/29/16 at 15:01 Piperacillin Sod/ Tazobactam Sod (Zosyn 3.375gm/ 100 ml (Pmx)) 100 ml @ 200 mls /hr Q6 IVPB Last administered on 08/03/16 11:05; Admin Dose 200 MLS/HR; Start 07/29/16 at 18:00 Vancomycin HCl (Vanco Iv Per Pharmacy) VANCOMYCIN PER PHARMACY NOTE XX ; Start 07/29/16 at 15:30 Nitroglycerin (Nitroglycerin (Sl Tab) 0.4 Mg) 1 tab Q5M PRN SL ANGINA; Start at 15:30 Alprazolam (Xanax) 0.25 mg TID PRN PO ANXIETY Last administered on 07/31/16 20 :42; Admin Dose 0.25 MG; Start 07/29/16 at 15:30 Docusate Sodium (Colace) 100 mg BID PRN PO CONSTIPATION; Start 07/29/16 at 15: 30 Ferrous Sulfate (Ferrous Sulfate (Ec)) 325 mg BID PO Last administered on 09:05; Admin Dose 325 MG; Start 07/29/16 at 21:00 Ondansetron HCl (Zofran Tab) 4 mg Q6H PRN PO NAUSEA AND/OR VOMITING Last administered on 07/31/16 06:49; Admin Dose 4 MG; Start 07/29/16 at 15:30 Pantoprazole (Protonix Tab) 40 mg DAILY PO Last administered on 08/03/16 09:05 ; Admin Dose 40 MG; Start 07/29/16 at 17:00 Nystatin (Nystatin Powder) 1 applic BID TOP Last administered on 08/03/16 09: 04; Admin Dose 1 APPLIC; Start 07/30/16 at 14:00 Collagenase (Santyl) 1 applic DAILY TOP ; Start 08/09/16 at 14:00 Sodium Hypochlorite (Dakin'S (1/4 Strength)) 1 applic BID IRR Last administered on 08/03/16 09:04; Admin Dose 1 APPLIC; Start 07/30/16 at 14:00; Stop 08/09/16 at 13:59 Acetaminophen/ Hydrocodone Bitart (B[place] (10/325)) 1 tab Q4H PRN PO PAIN Last administered on 08/03/16 13:32; Admin Dose 1 TAB; Start 07/31/16 at 12:00 Cyclobenzaprine HCl (Flexeril) 15 mg TID PO Last administered on 08/03/16 13: 29; Admin Dose 15 MG; Start 08/01/16 at 13:00 Warfarin Sodium 1 mg 1 mg DAILY@17 PO Last administered on 08/02/16 11:06; Admin Dose 1 MG; Start 08/02/16 at 11:00 Vancomycin HCl (Vancocin) 250 ml @ 125 mls/hr Q24H IVPB ; Start 08/04/16 at 13: 00 ARNULFO BUCK NP August 03, 2016 16:11
[2016-08-03] MEDS: WARFARIN 1 MG TAB PO SCH (16:40)
[2016-08-03] MEDS ORDERED: POTASSIUM CHLORIDE 20 MEQ POWDER FOR ORAL SOLN PO ONE (17:30)
--- NOTE | 2016-08-03 19:26 | PN ---
DATE: 08/03/2016 TIME OF EVALUATION: 1600. SUBJECTIVE DATA: Complains of left lower extremity pain. Remains afebrile. OBJECTIVE DATA: VITAL SIGNS: Temperature 98.4, pulse rate 88, respiratory rate 20, blood pressure 133/50, oxygen saturation 95% on low flow O2. GENERAL: This is a morbidly obese, 70-year-old female patient, lying in bed in no apparent distress. HEENT: Head normocephalic and atraumatic. Eyes: Anicteric sclerae. Conjunctivae clear. ENT: Nasal septum is midline. Oral mucosa is moist. NECK: Supple. No JVD noticed. CARDIAC: Regular rate and rhythm. S1 and S2 heard. GASTROINTESTINAL: Abdomen soft, nontender, nondistended. Bowel sounds positive in all 4 quadrants. GENITOURINARY: Deferred. EXTREMITIES: No cyanosis. No clubbing. Bilateral lower extremity lymphedema, left greater than right. Pedal pulses of the bilateral lower extremities nonpalpable. NEUROLOGIC: The patient is awake, alert and oriented. Cranial nerves are grossly intact. LABORATORY AND DIAGNOSTIC DATA: WBC 8.0, hemoglobin 9.2, hematocrit 30.5, platelet count 307. Sodium 130, potassium 3.0, chloride 102, carbon dioxide 32 , anion gap 7, BUN 14, creatinine 0.84, glucose 100, calcium 8.0. ASSESSMENT AND PLAN: 1. Acute respiratory failure, hypoxic, most probably secondary to diastolic heart failure, resolved. 2. Sepsis secondary to underlying left gluteal wound. On antibiotics as per infectious diseases. No evidence of any septic shock. 3. Microcytic hypochromic anemia. Etiology unclear. Will monitor H and H closely. We will obtain an iron panel. 4. History of deep venous thrombosis in the right lower extremity as per the patient. The patient was on Coumadin at home. Currently on Coumadin. INR is subtherapeutic. Will repeat a bilateral lower extremity venous Doppler study to evaluate for any underlying DVT. We will do daily INR check. 5. Debility. Continue physical therapy. 6. Morbid obesity. BMI of 54.1 kg/m2. 7. Pulmonary hypertension. Continue supplemental oxygen. 8. Fluid, electrolytes and nutrition. Low-cholesterol diet. 9. Deep venous thrombosis prophylaxis. On warfarin. 10. Gastrointestinal prophylaxis. Histamine 2 receptor blockers. PLAN: Continue antimicrobials as per infectious diseases. Await physical therapy evaluation. Await clearance from consultants before discharge. The patient refuses to go to a longterm facility. Therefore, the discharge plan will be most probably home with home health and home health PT. CECILIA GRAHAM MD, AM/BOLA Conf#: [id number] DID#: [id number] MTDD
[2016-08-03 20:00] VITALS: BP 133/60; RESP 20
[2016-08-03] MEDS ORDERED: FAMOTIDINE 20 MG TAB PO SCH (21:00)
--- NOTE | 2016-08-03 21:25 | RADRPT ---
PROCEDURE: Ultrasound of the bilateral lower extremity venous system. CLINICAL INDICATION: Bilateral leg pain and swelling, deep venous thrombosis TECHNIQUE: Narayanan scale, color Doppler, spectral Doppler images of both lower extremities venous sys tem obtained. Patient unable to tolerate compression images. COMPARISON: 04/09/2014 FINDINGS: RIGHT: Common femoral vein: Patent. Femoral vein: Patent. Popliteal vein: Patent. Calf veins: Patent. No soft tissue abnormalities are identified. LEFT: Common femoral vein: Patent. Femoral vein: Patent. Popliteal vein: Patent. Calf veins: Patent. No soft tissue abnormalities are identified. IMPRESSION: No evidence of a deep vein thrombosis within the bilateral lower extremities. RPTAT: AADD .Zeb Coleman MD, MD Date Time Electronically viewed and signed by .Zeb Coleman MD, on 08/03/2016 21:25 .B/
[2016-08-04] MEDS: HYDROCODONE/APAP (10/325) TAB PO PRN ×4 (00:24→14:32)
[2016-08-04] MEDS: SOD CHLORIDE 0.9% 1,000 ML IV SCH ×3 (01:01→10:25)
[2016-08-04] MEDS: FUROSEMIDE 40 MG INJ IV SCH ×2 (05:08→17:45)
[2016-08-04] MEDS: PIPER-TAZO 3.375 GM IV (PMX) 100 ML IVPB SCH ×4 (05:15→17:34)
[2016-08-04 05:24] LABS: INR 1.29; PROTIME 16.2 Sec (12.2-14.2); PT RATIO 1.3
[2016-08-04 05:30] LABS: MAGNESIUM 1.2 mg/dl (1.7-2.5); PHOSPHORUS 3.3 mg/dl (2.5-4.9)
[2016-08-04 05:43] LABS: IRON 63 ug/dl (35-150)
[2016-08-04 05:53] LABS: TOTAL IRON BINDING CAPACITY 189 ug/dl (241-421)
[2016-08-04 06:30] LABS: ADD SCAN DIFF NO
[2016-08-04 06:31] LABS: BASOPHILS % 0.5 % (0.0-2.0); EOSINOPHILS # 0.6 10^3/ul (0.0-0.5); EOSINOPHILS % 7.2 % (0.0-7.0); HEMATOCRIT 30.2 % (37.0-47.0); HEMOGLOBIN 9.2 g/dl (12.0-16.0); LYMPHOCYTES # 2.6 10^3/ul (0.8-2.9); LYMPHOCYTES % 34.3 % (15.0-51.0); MEAN CORPUSCULAR HEMOGLOBIN 23.8 pg (29.0-33.0); MEAN CORPUSCULAR HGB CONC 30.5 g/dl (32.0-37.0); MEAN CORPUSCULAR VOLUME 78.2 fl (82.0-101.0); MEAN PLATELET VOLUME 8.6 fl (7.4-10.4); MONOCYTE # 0.3 10^3/ul (0.3-0.9); MONOCYTES % 3.8 % (0.0-11.0); NEUTROPHIL # 4.1 10^3/ul (1.6-7.5); NEUTROPHILS % 53.7 % (39.0-77.0); PLATELET COUNT 309 10^3/UL (140-415); RED BLOOD COUNT 3.86 10^6/ul (4.20-5.40); RED CELL DISTRIBUTION WIDTH 18.4 % (11.5-14.5); WHITE BLOOD COUNT 7.7 10^3/ul (4.8-10.8)
[2016-08-04 07:47] LABS: CALCIUM 8.1 mg/dl (8.4-10.2); CREATININE 0.76 mg/dl (0.44-1.00); POTASSIUM 3.3 mmol/L (3.5-5.1)
[2016-08-04 07:57] VITALS: BP 140/64; RESP 18
[2016-08-04] MEDS: FERROUS SULFATE (EC) 325 MG TAB PO SCH (09:26)
[2016-08-04] MEDS: PANTOPRAZOLE (EC) 40 MG TAB PO SCH (09:27)
[2016-08-04] MEDS: CYCLOBENZAPRINE 10 MG TAB PO SCH ×2 (09:27→14:32)
[2016-08-04] MEDS: NYSTATIN 30 GM POWDER BTL TOP SCH (09:30)
[2016-08-04] MEDS: SODIUM HYPOCHLORITE 0.125% 473 ML BTL IRR SCH (09:30)
[2016-08-04] MEDS ORDERED: morphine 4 MG/ML VIAL IV PRN (10:00)
[2016-08-04] MEDS ORDERED: POTASSIUM CHLORIDE (SR) 20 MEQ TAB PO STA (10:07)
--- NOTE | 2016-08-04 10:30 | PDOCDIS ---
Discharge Instructions DIAGNOSIS Discharge Diagnosis: Sepsis secondary to underlying infected wound CONDITION Patient Condition: Stable HOME CARE INSTRUCTIONS: Special Diet: low chol low fat diet OTHER ORDERS: Other Orders: 1. Resume home medications. Complete the course of antibiotics. 2. Take a low-cholesterol diet. 3. Activities with assist. 4. Follow-up with your primary care physician in 1 week. CECILIA BARRON NP August 04, 2016 10:30
[2016-08-04] MEDS ORDERED: AMO500 PO (10:32)
[2016-08-04] MEDS ORDERED: LEVO750T25 PO (10:32)
[2016-08-04] MEDS ORDERED: SODI473S16 IRR (10:36)
[2016-08-04] MEDS ORDERED: SAN30GM TOP (10:36)
[2016-08-04] MEDS ORDERED: NYST15PO4 TOP (10:36)
--- NOTE | 2016-08-04 10:53 | PN ---
DATE: 08/04/2016 ADDENDUM: In speaking to Ms. Bailey, once again I do believe that she is asking for opioids, morphine , more for anxiety and depression than for an underlying severe pain management issue. I have stres sed to her that she needs to speak to her doctor about her pain control. I do believe she has a syn drome, but not requiring intravenous opioids. Will stop those at this time. Dictated By: CHERYL BRANDT MD, LP/BOLA Conf#: [id number] DID#: [id number]
[2016-08-04] MEDS ORDERED: KETOROLAC 15 MG INJ IV PRN (11:00)
[2016-08-04] MEDS ORDERED: MAGNESIUM SULFATE 3 GM in SOD CHLORIDE 0.9% 100 ML IVPB ONE (12:00)
--- NOTE | 2016-08-04 12:44 | PN ---
DATE: 08/04/2016 PALLIATIVE CARE PROGRESS NOTE Ms. Bailey is scheduled to go home soon, within the next 2 days. She is still complaining of discomfo rt in the lower extremity and I have reviewed her CT scan results. I do not believe there is any pat hology that would indicate any invasive studies, especially since the patient has recurrent cellulit is and she is unfortunately morbidly obese. I have addressed her code status during my consultation initially with her, and we changed her code to DO NOT RESUSCITATE at that time. Other issue I rich tiffanie with this lady is depression, anxiety. She has a clear understanding of her underlying medical condition, especially how her morbid obesity complicates her medical management. The acceptable qual ity of life, she does not want to live on artificial life support. She has made that very clear and it is documented. Her fears, concerns, cultural issues and communication preferences have been addr essed in my prior note. Goals of care have been discussed with her. Prognosis is poor. Patient's [facility] performance status is 50%, very high probability of readmission with some underlying i nfectious process or arteriosclerotic circulatory vascular disease complications or catastrophe. Her pain management issue has been addressed with primary care providers here. I do not believe there i s an indication to changing them. I have discussed with her that she needs to be seen by her primary care physician and have her opioids either tapered and/or she should be referred to a pain manageme nt physician for followup. Ethical issues as per above. The patient should have a POLST form given t o her prior to discharge. Dictated By: CHERYL BRANDT MD, LP/BOLA Conf#: [id number] DID#: [id number]
--- NOTE | 2016-08-04 12:46 | PN ---
DATE: 08/01/2016 PALLIATIVE CARE PROGRESS NOTE AND PAIN MANAGEMENT I spoke with Dr. Weaver today. Plans are to discharge her today with home health care. He has made a djustments in pain control medications, which I believe are very appropriate and indicated. We had discussed her going home with the current pain control medications, which I believe are indicated at this time. She does not have escalating doses of current pain medications. Yesterday, I discussed her code status, and we made the appropriate change to DO NOT RESUSCITATE. Suggest that she goes h ome with a POLST form. Dictated By: CHERYL BRANDT MD LP/NTS Conf#: [id number] DID#: [id number]
[2016-08-04] MEDS ORDERED: VANCOMYCIN 1 GM in NS 250 ML IVPB SCH ×2 (13:00→17:00)
[2016-08-04] MEDS: WARFARIN 1 MG TAB PO SCH (17:45)
--- NOTE | 2016-08-04 20:00 | CONS ---
Date/Time of Note Date/Time of Note DATE: 08/04/16 TIME: 19:59 Consult Date/Type/Reason Admit Date/Time July 29, 2016 at 12:07 Type of Consultation: ID Subjective no acute events, alert, feels better, no fevers, nad Objective Vital Signs Date Time Temp Pulse Resp B/P Pulse Ox O2 Delivery O2 Flow Rate FiO2 08/04/16 07:57 98.0 83 18 140/64 95 08/03/16 20:00 Nasal Cannula 2.0 Intake and Output 08/03/16 08/03/16 08/04/16 15:00 23:00 07:00 Intake Total 100 ml 2350 ml 1820 ml Output Total 3300 ml 2650 ml Balance 100 ml -950 ml -830 ml Results/Medications Result Diagram: 08/04/16 0451 08/04/16 0451 Results 24 hrs Laboratory Tests Test 08/04/16 04:51 08/04/16 07:53 White Blood Count 7.7 Red Blood Count 3.86 L Hemoglobin 9.2 L Hematocrit 30.2 L Mean Corpuscular Volume 78.2 L Mean Corpuscular Hemoglobin 23.8 L Mean Corpuscular Hemoglobin Concent 30.5 L Red Cell Distribution Width 18.4 H Platelet Count 309 Mean Platelet Volume 8.6 Neutrophils % 53.7 Lymphocytes % 34.3 Monocytes % 3.8 Eosinophils % 7.2 H Basophils % 0.5 Nucleated Red Blood Cells % 0.0 Neutrophils # 4.1 Lymphocytes # 2.6 Monocytes # 0.3 Eosinophils # 0.6 H Basophils # 0.0 Nucleated Red Blood Cells # 0.0 Prothrombin Time 16.2 H Prothrombin Time Ratio 1.3 INR International Normalized Ratio 1.29 Activated Partial Thromboplast Time 31.0 Sodium Level 138 Potassium Level 3.3 L Chloride Level 102 Carbon Dioxide Level 29 Anion Gap 10 Blood Urea Nitrogen 13 Creatinine 0.76 Glucose Level 94 Calcium Level 8.1 L Phosphorus Level 3.3 Magnesium Level 1.2 L Iron Level 63 Total Iron Binding Capacity 189 L Percent Iron Saturation 33 Ferritin 304.0 H Lab Scanned Report BLOOD TRANSFUSION Assessment/Plan Chief Complaint/Hosp Course ANTIMICROBIALS: 1. IV vancomycin. 2. Zosyn. PHYSICAL EXAMINATION: GENERAL: Morbidly obese elderly woman who is awake, in no distress. HEENT: Head atraumatic, normocephalic. Sclerae anicteric. Buccal mucosa dry. NECK: Obese. CHEST: Rise symmetrical. Breath sounds diminished to bases. HEART: S1, S2. ABDOMEN: Soft, bowel sounds present. EXTREMITIES: With bilateral lower extremity edema. ASSESSMENT: 1. S/p sepsis with fever, leukocytosis, tachycardia on admission. 2. Multiple decubiti with probable infected left buttock wound==> cx +Proteus/ Enterococcus. 3. Morbid obesity. 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 PLAN: The patient remains stable. Anticipate dc on PO Levaquin and Amoxicillin. Continue local wound care/off load staff Problems: JIM BLAIR NP August 04, 2016 20:00
--- NOTE | 2016-08-04 21:03 | DS ---
DATE OF ADMISSION: 07/29/2016 DATE OF DISCHARGE: 08/04/2016 FINAL DIAGNOSES: 1. Acute respiratory failure, hypoxic, resolved. 2. Acute on chronic diastolic heart failure. 3. Sepsis secondary to infected left gluteal wound. 4. Infected left gluteal wound. 5. Microcytic hypochromic anemia. 6. History of deep venous thrombosis in the right lower extremity as per the patient. Bilateral lower extremity venous Doppler study negative for any DVT. 7. Pulmonary hypertension. Pulmonary artery systolic pressure of 51 mmHg as per 2D echocardiogram. 8. Debility. 9. Morbid obesity. 10. Chronic pain. 11. Opioid dependence. CONSULTANTS: 1. Dr. Chelsea Melchor, Pain Management. 2. Dr. Dante Redd, Infectious Disease. HOSPITAL COURSE: This is a 70-year-old female with past medical history of morbid obesity, chronic pain, and bilateral lower extremity edema, who came to the emergency room with a chief complaint of shortness of breath. The patient also verbalized subjective fevers at home. The patient was noticed to have a large left-sided gluteal wound with a significant amount of drainage that was foul smelling. The patient also was noticed to be afebrile. The patient was also noticed to be anemic with a hemoglobin of 7.6. Provided the patient's history of present illness, her comorbidities, and the diagnostic findings, a clinical decision was made to admit the patient to inpatient setting to have her further evaluated. The patient was admitted to inpatient setting. An infectious disease consult was called. Pancultures were ordered. Pain management consult was also called. The patient's left buttock wound showed positive Proteus mirabilis and Enterococcus species. The patient's blood cultures remained negative. The patient had no evidence of any septic shock. The patient was maintained on antibiotics as per Infectious Disease. The patient was noticed to be anemic upon admission. The patient's dyspnea could be a combination of her diastolic heart failure as well as her underlying morbid obesity along with a component of anemia. The patient was noticed to be taking warfarin at home. The patient was unable to give me a clear explanation for why the patient was taking warfarin. The patient verbalized that she has right lower extremity deep venous thrombosis. However, the bilateral lower extremity venous Doppler study that was done here was negative for any DVT. Hence, the patient would be taken off anticoagulation, specifically since the patient has underlying anemia that required blood a transfusion. Of note, it was unable to identify from the previous discharge summary from [facility] about the need for the patient's anticoagulation with warfarin. The patient also has underlying pulmonary hypertension as evidenced by a pulmonary artery systolic pressure of 51 mmHg as per 2D echocardiogram. The patient is morbidly obese and is deconditioned. The patient was evaluated by physical therapy. However, the patient was not cooperating with physical therapy. The patient is also opioid dependent. The patient was complaining of severe back pain and was asking for pain medications. The patient was seen by pain management team. The patient had a stable hospital course. The patient was cleared by consultants to be discharged home. The patient refused any intermediate facility placement. Hence, the patient will be discharged home with home health. The patient was provided with adequate dressing changes as per wound care instructions to her left buttocks wound. DISCHARGE PLAN: The patient will be discharged home today. The patient was instructed to resume her medications. She was instructed to complete the course of antibiotics. She was instructed to take a low cholesterol diet. Activities will be with assist. She was told to followup with her primary care physician in 1 week. Home health was arranged by case management for daily dressing changes. Home health physical therapy was also arranged by case management. The patient verbalized understanding of her discharge instructions. CONDITION AT DISCHARGE: Stable. DISCHARGE MEDICATIONS: 1. Amoxicillin 500 mg p.o. q.8 hours for 10 days. 2. Levaquin 750 mg p.o. daily. for 10 days. 3. Santyl one application topically daily after 10 days of application of Dakin 's solution. 4. Nystatin topical powder 1 application b.i.d. for 10 days. 5. Dakin's solution 1/4 strength b.i.d. to the left and right gluteal wound. 6. Xanax 0.25 mg p.o. t.i.d. p.r.n. anxiety. 7. Colace 100 mg p.o. b.i.d. p.r.n. constipation. 8. Nexium 40 mg p.o. daily. 9. Ferrous sulfate 325 mg p.o. b.i.d. 10. Lasix 40 mg p.o. daily. 11. [place] 10/325 one tablet p.o. q. p.r.n. pain. 12. Zofran mg p.o. q.6h. p.r.n. nausea, vomiting. PERTINENT LABORATORY AND DIAGNOSTIC DATA: 1. 2-D echocardiogram. Mild concentric left ventricular hypertrophy. Ejection fraction of 65%. Stage I diastolic dysfunction. Estimated peak PA systolic pressure of 51 mmHg. There is mild tricuspid regurgitation. 2. Left buttock wound culture, positive for Proteus mirabilis and Enterococcus species. 3. Urine culture positive for lactobacillus species. 4. Latest CBC: WBC 7.7, hemoglobin 9.2, hematocrit 30.2, platelet 3019. 5. Latest BMP: Sodium 130, potassium 3.3, chloride 102, carbon dioxide 20, anion gap 10, BUN 13, creatinine 0.76, glucose 94, calcium 8.1, phosphorus 3.8, magnesium 1.2. 6. Iron panel: Iron 63, TIBC 189, Iron saturation 33. Ferritin 304. 7. Hemoglobin A1c 6.0. 8. Fasting lipid panel: Triglycerides 121, total cholesterol 104, LDL 62, AST of 18. At this time, I would like to thank all the consultants for seeing the patient and providing clinical recommendations. The case and management of this patient was fully discussed with Dr. De Los Santos. Approximately 40 minutes on coordinating the discharge on this patient. CECILIA DE LOS SANTOS MD, AM/BOLA Conf#: [id number] DID#: [id number]
[2016-08-09] MEDS ORDERED: COLLAGENASE 30 GM TUBE TOP SCH (14:00)
== END 2016-08-04 18:43 | disposition home health service (06) | DRG 871 ==
LOC: E/R 11:02 → MS2 12:07
PROVIDERS: ADMIT Internal Medicine; ATTEND Internal Medicine
PROC: 30233N1 Transfusion of Nonautologous Red Blood Cells into Peripheral Vein, Percutaneous Approach (ICD-10-PCS; 2016-07-29)
PROC: 30233N1 Transfusion of Nonautologous Red Blood Cells into Peripheral Vein, Percutaneous Approach (ICD-10-PCS; principal; 2016-07-30)
DX: A41.9 Sepsis, unspecified organism (principal); J96.01 Acute respiratory failure with hypoxia; I50.33 Acute on chronic diastolic (congestive) heart failure; L89.314 Pressure ulcer of right buttock, stage 4; L89.323 Pressure ulcer of left buttock, stage 3; Z68.43 Body mass index [BMI] 50.0-59.9, adult; F11.20 Opioid dependence, uncomplicated; D64.9 Anemia, unspecified; E66.01 Morbid (severe) obesity due to excess calories; M51.9 Unspecified thoracic, thoracolumbar and lumbosacral intervertebral disc disorder; G89.29 Other chronic pain; D50.9 Iron deficiency anemia, unspecified; Z79.01 Long term (current) use of anticoagulants; Z86.718 Personal history of other venous thrombosis and embolism
CPT/HCPCS: 36415; 36430; 71010; 72125; 72128; 72131; 80048; 80053; 80061; 80202; 81001; 82728; 83036; 83540; 83605; 83735; 84100; 84439; 84443; 84484; 85025; 85610; 85730; 86850; 86900; 86901; 86920; 87040; 87070; 87081; 87086; 93005; 93306; 93970; 94640; 94664; 96374; 96375; 97162; J1940; J0692; J1885; J2060; J2270; J2543; J3370; J3475; J3480; J7030; J7040; J7050; P9016